=== PATIENT | female | born 1935 | race Caucasian/White ===

== ENCOUNTER 2017-07-09 11:24 | Inpatient (IN) | payer MEDICARE, BC ==
--- NOTE | 2017-06-19 10:21 | HP ---
HISTORY AND PHYSICAL: DATE OF ADMISSION/SURGERY: 07/09/17 SURGEON: Fozia Krause MD * (DICTATED BY GISSEL CAMPOS) PROCEDURE: Left total hip arthroplasty. CHIEF COMPLAINT: Left hip pain. HISTORY OF PRESENT ILLNESS: Ms. Villafana is an 81-year-old female with end-stage osteoarthritis of the left hip. She has failed conservative management and elected to proceed with a left total hip arthroplasty which is scheduled for with Dr. Krause. PAST MEDICAL HISTORY: Macular degeneration. PAST SURGICAL HISTORY: Bilateral total knee arthroplasties, tonsillectomy, adenoidectomy, and trigger finger release of the bilateral hands. CURRENT MEDICATIONS: 1. Aspirin 81 mg daily. 2. Vitamin D. 3. PreserVision AREDS. ALLERGIES: NOVOCAINE. FAMILY HISTORY: Diabetes, cancer, and emphysema. SOCIAL HISTORY: She is an 81-year-old female. She lives with her . She does not smoke, use drugs or alcohol. REVIEW OF SYSTEMS: A complete 14-point review of systems was reviewed with the patient, it was all negative or noncontributory. PHYSICAL EXAMINATION GENERAL: She is well developed, well nourished, in no acute distress. VITAL SIGNS: She stands 5 feet 2 inches tall, weighs 160 pounds. Her blood pressure is 146/84, heart rate is 74. HEENT: Normocephalic, atraumatic. NECK: Supple. No palpable lymph nodes. PULMONARY: Lungs are clear to auscultation bilaterally. CARDIAC: Regular rate and rhythm. Strong S1 and S2. ABDOMEN: Soft, nontender, nondistended. NEUROLOGIC: She is alert and oriented x3. Cranial nerves II through XII are intact. MUSCULOSKELETAL: Left lower extremity: The skin is intact. There are no open wounds or abrasions. She walks with an antalgic type gait, favoring her left hip. She uses a cane to help assist ambulation. She has decreased internal and external rotation of the left hip. She has 2+ dorsal pedis pulses, intact sensation. In her lower extremities, muscular group strengths are intact at 5/ 5. ASSESSMENT AND PLAN: Ms. Villafana is an 81-year-old female with complaints of left hip pain secondary to end-stage osteoarthritis. She has failed conservative management and elected to proceed with a left total hip arthroplasty, which is scheduled for 07/09/[address] Krause discussed the risks and the benefits of the surgery at today's visit and all of her questions were answered. She will follow with Dr. Krause 2 weeks after the surgery. GISSEL CAMPOS [id number]/[facility] #: [id number] KARLA
[~2017-07-09 11:24] MED LIST: Buffered Lidocaine 0.9% SYRIN* 5 ML/SYR SYRINGE INTRADERM ONE; DiMENhydriNATE IV* 50 MG/ML VIAL IV PUSH PRN; Famotidine TAB* 20 MG PO ONE; Morphine INJ* 2 MG/ML 1 ML CARPUJECT IV PRN; Naloxone* 0.4 MG/ML 1 ML VIAL IV PRN; PROCHLORPERAZINE INJ 5 MG/ML 2 ML VIAL IV PRN; fentaNYL* 50 MCG/ML 2 ML VIAL (100 MCG VIAL) IV PRN; oxyCODONE/Acetamin 5/325 MG* TAB PO PRN
--- OUTSIDE RECORDS SUMMARY | 2017-07-09 11:29 | XMS REPORT ---
:1935 External Reference #:[id number] Author Organization [facility] Address [address] [address] Phone [phone] Care Team Providers Name Role Phone Susannah Thorne MD Care Team Information Tuber Operator Unavailable Payers Type Date Identification Numbers Payment Provider Subscriber Medicare Primary Effective: Policy Number: Medicare Carolina Villafana 2002 [id number] PayID: [id number] [address] [place] [address] [place] Effective: Policy Number: BCBS Commercial Carolina Villafana 2012 [id number] PayID: [id number] [address] [address] [place] [address] Problems Date Description Provider Status Onset: 04/16/2011 Overweight Susannah Thorne MD Active Onset: 04/16/2011 Vitamin D deficiency Susannah Thorne MD Active Onset: 04/16/2011 Allergic rhinitis Susannah Thorne MD Active Onset: 04/16/2011 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 Onset: 07/05/2014 Arthroplasty of knee Susannah Thorne MD Active Onset: 06/27/2017 FH: Diabetes mellitus Susannah Thorne MD Active Onset: 07/20/2015 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 Family History Date Family Member(s) Problem(s) Comments Father due to COPD () Father Glaucoma Mother due to Cancer, () - mets to Breast lung; dx breast age about 70 Onset: (age 61 First Daughter Cancer, Breast Years) First Daughter Osteoporosis First Daughter Parkinson's Disease First Brother due to DM () - (age 68 Years) Second Brother due to Leukemia () First Sister due to Cancer, () - (age 78 Pancreatic Years) Second Sister due to Cancer, () - (age 74 Stomach Years) Social History Type Date Description Comments Marital Status Lives with spouse 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 admits not enough in the spring moves to camp on [address] and increases walking then Allergies, Adverse Reactions, Alerts Date Description Reaction Status Severity Comments 07/05/2014 NKDA active Medications Medication Date Status Form Strength Qnty SIG Indications Ordering Provider Carvedilol Active Tablets 3.125mg 60tabs 1 by I25.2 Mati 018 Susannah lira MD twice daily Atorvastatin Active Tablets 10mg 30tabs 1 by I25.2 Mati Calcium 018 Susannah lira MD every day Vitamin D3 Active Tablets 1000Unit 180tabs 2 by E55.9 Mati 015 Susannah lira MD daily with dinner with meat fat oil Aspirin Adult Active Tablets DR 81mg 90tabs 1 po Z00.01 Mati Low Strength 012 daily , MD Susannah with food I25.2 Preservision Areds Active Capsules 1 by mouth H35.3130 Unknown twice a day Tylenol Extra Active Tablets 500mg as needed Unknown Strength Antioxidant - Hx Capsules bid Unknown Formula 01/31/2017 Immunizations CPT Code Status Date Vaccine Reaction Lot # [id number] Given 01/09/2017 Flulaval Immunization [facility] 48465 Given 01/25/2016 Fluzone Highdose Age 65 And Over [facility] Preservative & Antibiotic Free Q2037 Given 03/23/2015 Fluvirin Immunization 81545 Given 07/05/2014 Prevnar 13 Pneumococal Conjugate Vaccine [id number] 86288 Given 02/21/2014 Fluzone Highdose Age 65 And Over Preservative & Antibiotic Free 58677 Given 01/25/2014 Influenza Virus Vaccine,Quadrivalent,Split,Preserv Free 3 Yrs+ 41473 Given 03/28/2013 Afluria Or Fluvirin Flu Vac Intramuscular 54037 Given 03/03/2009 Afluria Or Fluvirin Flu Vac Intramuscular 87519 Given 03/25/2007 Immunization Td 7 Yrs Or Older 38999 Given 03/25/2005 Pneumococcal 23 Immunization Adult Or Immunosuppressed Patient 91951 Refused 07/20/2016 Zoster (Zostavax) [id number] Refused 07/05/2014 Zoster (Zostavax) Vital Signs Date Vital Result Comment 06/27/2017 Weight 166.00 lb Heart Rate 70 /min BP Systolic 118 mmHg BP Diastolic 78 mmHg Respiratory Rate 18 /min Height 61 inches 5'1" BMI (Body Mass Index) 31.4 kg/m2 05/23/2017 Weight 170.00 lb Heart Rate 70 /min BP Systolic 130 mmHg BP Diastolic 72 mmHg Respiratory Rate 18 /min Height 60.75 inches 5'0.75" BMI (Body Mass Index) 32.4 kg/m2 02/01/2017 Weight 166.00 lb Heart Rate 78 /min BP Systolic 118 mmHg BP Diastolic 68 mmHg Respiratory Rate 14 /min Height 60.75 inches 5'0.75" BMI (Body Mass Index) 31.6 kg/m2 07/20/2016 Weight 166.00 lb Heart Rate 74 /min BP Systolic 120 mmHg BP Diastolic 80 mmHg Respiratory Rate 18 /min Height 60.75 inches 5'0.75" BMI (Body Mass Index) 31.6 kg/m2 07/20/2015 Weight 162.00 lb Heart Rate 80 /min BP Systolic 146 mmHg LEFT Reg BP Diastolic 94 mmHg LEFT Reg BP Systolic Recheck 127 mmHg home BP Diastolic Recheck 78 mmHg home Respiratory Rate 18 /min Height 60.75 inches 5'0.75" BMI (Body Mass Index) 30.9 kg/m2 07/05/2014 Weight 164.00 lb Heart Rate 74 /min BP Systolic 140 mmHg BP Diastolic 82 mmHg Respiratory Rate 18 /min Height 61.5 inches 5'1.50" BMI (Body Mass Index) 30.5 kg/m2 08/13/2013 Weight 166.00 lb Heart Rate 74 /min Respiratory Rate 18 /min Height 61.5 inches 5'1.50" 07/02/2013 BP Systolic 158 mmHg home 130/80 BP Diastolic 80 mmHg home 130/80 07/02/2013 Weight 164.00 lb Heart Rate 72 /min BP Systolic 150 mmHg BP Diastolic 90 mmHg Respiratory Rate 18 /min Height 61.5 inches 5'1.50" 06/20/2012 Weight 166.00 lb Heart Rate 74 /min BP Systolic 132 mmHg BP Diastolic 80 mmHg Respiratory Rate 18 /min Height 62 inches 5'2" 04/16/2011 Body Temperature 98.5 F Weight 149.00 lb Heart Rate 68 /min BP Systolic 128 mmHg BP Diastolic 82 mmHg Respiratory Rate 17 /min Height 62 inches 5'2" 04/14/2010 BP Systolic 152 mmHg RIGHT BP Diastolic 88 mmHg RIGHT 04/14/2010 Body Temperature 98.7 F Weight 165.00 lb Heart Rate 80 /min BP Systolic 148 mmHg LEFT BP Diastolic 90 mmHg LEFT Respiratory Rate 16 /min 04/11/2009 BP Systolic 151 mmHg pts cuff BP Diastolic 73 mmHg pts cuff 04/11/2009 Weight 168.00 lb Heart Rate 74 /min BP Systolic 128 mmHg BP Diastolic 76 mmHg Respiratory Rate 16 /min 12/16/2008 BP Systolic 132 mmHg BP Diastolic 80 mmHg 12/16/2008 Weight 168.00 lb Heart Rate 80 /min BP Systolic 140 mmHg BP Diastolic 80 mmHg Respiratory Rate 14 /min 10/08/2008 BP Systolic 138 mmHg BP Diastolic 90 mmHg 10/08/2008 Weight 171.00 lb Heart Rate 82 /min BP Systolic 148 mmHg BP Diastolic 88 mmHg Respiratory Rate 16 /min 04/09/2008 BP Systolic 146 mmHg BP Diastolic 82 mmHg 04/09/2008 Weight 173.50 lb Heart Rate 80 /min BP Systolic 150 mmHg BP Diastolic 80 mmHg Respiratory Rate 16 /min Height 62 inches 5'2" Results Test Date Test Result H/L Range Note Laboratory test finding 06/27/2017 Vit D 25Oh <pending> Comprehensive Metabolic (CMP) 07/20/2016 Sodium 140 mmol/L 135-146 1, 2 Potassium 4.9 mmol/L 3.5-5.2 1 Chloride# 101 mmol/L 97-110 1, 3 Carbon Dioxide 31 mmol/L 24-34 1 Glucose 139 mg/dL High 70-105 1 BUN 17 mg/dL 6-26 1 Creatinine 0.8 mg/dL 0.5-1.4 1 Calcium 10.2 mg/dL 8.5-10.2 1 Total Protein 7.2 g/dL 6.0-8.0 1 Albumin 4.4 g/dL 3.6-4.9 1 Globulin 2.8 g/dL 2.0-3.5 1 A/G Ratio 1.6 Ratio 1.0-2.2 1 Total Bilirubin 0.4 mg/dL 0.1-1.3 1 Alkaline Phosphatase 36 U/L 24-140 1 Alt 12 U/L 3-42 1 Ast 13 U/L 8-42 1 Melani Egfr >60 >60 1, 4 Non Melani Egfr >60 >60 1, 5 Anion Gap 13 mmol/L 7-16 1, 6 Laboratory test finding 07/20/2016 Vit D,25 Hydroxy 56 ng/mL 31-100 1 Lipid 07/20/2016 Cholesterol 177 mg/dL 50-199 1 Triglycerides 202 mg/dL High 30-200 1 HDL 50 mg/dL 35-85 1, 7 Chol/ HDL Ratio 3.6 ratio Low 3.7-5.6 1 VLDL 40 mg/dL High 2-29 1 LDL (Calc) 87 mg/dL 20-99 1, 8 Laboratory test finding 07/20/2015 Vit D,25 Hydroxy 37 ng/mL 31-100 9 Comprehensive Metabolic (CMP) 07/20/2015 Sodium 138 mmol/L 134-142 9 Potassium 4.4 mmol/L 3.5-5.2 9 Chloride 101 mmol/L 97-109 9 Carbon Dioxide 32 mmol/L 24-34 9 Glucose 87 mg/dL 70-105 9 BUN 18 mg/dL 6-26 9 Creatinine 0.8 mg/dL 0.5-1.4 9 Calcium 9.8 mg/dL 8.5-10.2 9 Total Protein 7.5 g/dL 6.0-8.0 9 Albumin 4.3 g/dL 3.6-4.9 9 Globulin 3.2 g/dL 2.0-3.5 9 A/G Ratio 1.3 Ratio 1.0-2.2 9 Total Bilirubin 0.5 mg/dL 0.1-1.3 9 Alkaline Phosphatase 32 U/L 24-140 9 Alt 13 U/L 3-42 9 Ast 16 U/L 8-42 9 Anion Gap 9 mmol/L 6-14 9 Melani Egfr >60 >60 9, 10 Non Melani Egfr >60 >60 9, 11 CBC With Auto Diff 07/14/2014 WBC 7.8 K/uL 4.1-11.0 12 RBC 4.46 M/uL 4.00-5.40 12 Hemoglobin 13.7 gm/dL 12.0-16.0 12 Hematocrit 41.4 % 36.0-47.0 12 MCV 92.8 fL 80.0-97.0 12 MCH 30.6 pg 27.0-32.0 12 MCHC 33.0 g/dL 32.0-36.0 12 RDW 14.0 % 11.5-14.5 12 PLT Count 245 K/ul 140-400 12 Neutrophil 61.7 % 35.0-75.0 12 Lymphocyte 27.0 % 16.0-52.0 12 Monocyte 8.6 % 2.0-10.0 12 Eosinophil 1.9 % 0.0-5.0 12 Basophil 0.8 % 0.0-4.0 12 Abs Neutrophils 4.8 K/uL 2.1-8.0 12 Abs Lymphocytes 2.1 K/uL 0.8-5.5 12 Abmon 0.7 K/uL 0.1-1.0 12 Abs Eosinophils 0.1 K/uL 0.0-0.5 12 Abs Basophils 0.1 K/uL 0.0-0.3 12 Comprehensive Metabolic (CMP) 07/14/2014 Sodium 140 mmol/L 134-142 12 Potassium 5.0 mmol/L 3.5-5.2 12 Chloride 102 mmol/L 97-109 12 Carbon Dioxide 31 mmol/L 24-34 12 Glucose 107 mg/dL High 70-105 12 BUN 15 mg/dL 6-26 12 Creatinine 0.8 mg/dL 0.5-1.4 12 Calcium 9.4 mg/dL 8.5-10.2 12 Total Protein 7.2 g/dL 6.0-8.0 12 Albumin 4.1 g/dL 3.6-4.9 12 Globulin 3.1 g/dL 2.0-3.5 12 A/G Ratio 1.3 Ratio 1.0-2.2 12 Total Bilirubin 0.4 mg/dL 0.1-1.3 12 Alkaline Phosphatase 31 U/L 24-140 12 Alt 12 U/L 3-42 12 Ast 14 U/L 8-42 12 Anion Gap 12 mmol/L 6-14 12 Melani Egfr >60 >60 12, 13 Non Melani Egfr >60 >60 12, 14 Laboratory test finding 07/14/2014 Vit D,25 Hydroxy 47 ng/mL 31-100 12 Microalb/Creat Panel 07/05/2014 Albumin, Urine 0.76 mg/dL Creatinine,Urine 46.6 mg/dL Alb/Creatinine Ratio 16.3 ug/mg (0.0-29.9) 15 Rout Urine W/ Micro -RL 07/05/2014 Color YELLOW Appearance CLEAR Spec Grav Urine 1.010 (1.003-1.030) PH Urine 6.0 (5.0-7.5) Leuk Esterase 2+ (Neg) Nitrite Urine NEGATIVE (Neg) Protein Urine NEGATIVE (Neg) Glucose Urine NEGATIVE (Neg) Ketone Urine NEGATIVE (Neg) Urobilinogen 0.2 mg/dL (0-1.0) Bilirubin Urine NEGATIVE (Neg) Blood/HGB Urine NEGATIVE (Neg) Epithelial Cells NEGATIVE [HPF] (Neg) Hyaline Casts 0.7 [LPF] (0-5) Bacteria 1+ [HPF] (Neg) Urine WBC 36.2 [HPF] High (0-8) Urine RBC 0.9 [HPF] (0-3) 16 Laboratory test finding 07/02/2013 Culture Urine See Note 17 Urine Amorph Sediment Small Negative Urine Bacteria Few None Seen Urine Epithelial Cells Few None Seen /lpf Urine Mucus Small None Seen Urine RBC 0-2 rbc/hpf 0-7 Urine WBC 2-5 wbc/hpf 0-7 Laboratory test finding 07/02/2013 % Baso. 1.7 % 0.0-2.0 % Eos. 1.8 % 0.0-4.0 % Lymph 33 % 20-44 % Moody 8.2 % 2.0-10.0 % Ursula 56 % 50-70 A/G Ratio 1.2 ratio Low 1.6-2.2 Absolute Baso. 0.2 K/ul 0.0-0.3 Absolute Eos. 0.2 K/ul 0.0-0.5 Absolute Lymph. 3.0 K/ul 0.8-4.8 Absolute Moody. 0.8 K/ul 0.1-1.0 Absolute Ursula. 5.12 K/ul 2.05-7.63 Albumin 4.3 g/dL 3.5-5.0 Alk. Phos. 34.0 U/L 30.0-126.0 Alt 18.0 U/L 9.0-52.0 Anion Gap 11.0 mmol/L 10.0-20.0 Ast 24.0 U/L 14.0-36.0 BUN 20.0 mg/dL High 7.0-18.0 BUN/Creat Ratio 25.0 ratio High 12.0-20.0 Calcium 9.3 mg/dL 8.7-10.5 Chloride 103.0 mmol/L 98.0-107.0 Co2 26.0 mmol/L 22.0-30.0 Creatinine-Serum 0.8 mg/dL 0.7-1.2 Globulin 3.7 g/dL 2.7-4.3 Glucose 100.0 mg/dL 75.0-110.0 HCT 43.7 % 37.0-51.0 HGB 14.7 Gm/dl 12.0-16.0 MCH 31.5 pg 26.0-32.0 MCHC 33.7 g/dL 31.0-36.0 MCV 93.5 Fl 80.0-97.0 MPV 6.6 fL 6.0-10.0 PLT 340 K/ul 140-440 Potasium 4.7 mmol/L 3.6-5.0 RBC 4.7 M/ul 4.2-6.3 RDW 13.0 % 11.5-14.5 Sodium 140.0 mmil/L 137.0-145.0 TSH 3.13 uIU/ml 0.50-6.00 Total Bilirubin 0.4 mg/dL 0.2-1.3 Total Protein 8.0 g/dL 6.3-8.2 WBC 9.2 K/ul 4.1-10.9 eGFR 71.9 mi/minper1.73 18 Lipid Panel 07/02/2013 Chol/HDL Ratio 3.9 ratio Cholesterol 175.0 mg/dL 50.0-199.0 HDL 45.0 mg/dL 29.0-86.0 LDL, Calculated 108.6 mg/dL 20.0-129.0 Triglycerides 107.0 mg/dL 30.0-249.0 vLDL 21.4 ng/dL Urine Microalbumin/Creat 07/02/2013 Microalb/Creat Ratio 6.5 ug/ngcrt 0.0 -30.0 Urine Creatinine 155.6 mg/dL Urine Microalbumin 10.1 mg/L <18.5 1 g fo fam hist diabetesand ho chol lipid done for obesity dm ;labst paulie letter ; last food at 7am, doin 2 Updated reference range on new analyzer 3 Updated reference range on new analyzer 4 Concerning GFR Guidelines for Americans: Normal function or mild renal disease, if clinically at risk: >/=60 mL/min Moderately decreased: 30-59 Severely decreased: 15-29 Renal failure: <15 5 Concerning GFR Guidelines: Normal function or mild renal disease, if clinically at risk: >/=60 mL/min Moderately decreased: 30-59 Severely decreased: 15-29 Renal failure: <15 Glomerular Filtration Rate (GFR) is estimated based on the MDRD equation, which assumes a steady state for creatinine as recommended by the National Kidney Disease Education Program in conjunction with the National Institutes of Health and the National Kidney Foundation. Clinical conditions in which it may be necessary to measure GFR by using clearance methods include extremes of age and body size, severe malnutrition or obesity, diseases of skeletal muscle, paraplegia or quadriplegia, vegetarian diet, rapidly changing kidney function, and calculation of the dose of potentially toxic drugs that are excreted by the kidneys. 6 Updated reference range on new analyzer 7 Per NCEP ATP III Guidelines: Results lower than 40 mg/dL are suggestive of increased risk for coronary artery disease. Results > or=to 60 mg/dL are considered a negative risk factor. 8 Per NCEP ATP III Guidelines: Normal Population <130 Patients with medical conditions: CHD/DM Optimal: <100 Borderline high: 130-159 High: 160-189 Very high: >189 9 today letter 10 Concerning GFR Guidelines for Americans: Normal function or mild renal disease, if clinically at risk: >/=60 mL/min Moderately decreased: 30-59 Severely decreased: 15-29 Renal failure: <15 11 Concerning GFR Guidelines: Normal function or mild renal disease, if clinically at risk: >/=60 mL/min Moderately decreased: 30-59 Severely decreased: 15-29 Renal failure: <15 Glomerular Filtration Rate (GFR) is estimated based on the MDRD equation, which assumes a steady state for creatinine as recommended by the National Kidney Disease Education Program in conjunction with the National Institutes of Health and the National Kidney Foundation. Clinical conditions in which it may be necessary to measure GFR by using clearance methods include extremes of age and body size, severe malnutrition or obesity, diseases of skeletal muscle, paraplegia or quadriplegia, vegetarian diet, rapidly changing kidney function, and calculation of the dose of potentially toxic drugs that are excreted by the kidneys. 12 today letter; Fastin hours today letter; Fastin hours today letter; Fastin hours 13 Concerning GFR Guidelines for Americans: Normal function or mild renal disease, if clinically at risk: >/=60 mL/min Moderately decreased: 30-59 Severely decreased: 15-29 Renal failure: <15 14 Concerning GFR Guidelines: Normal function or mild renal disease, if clinically at risk: >/=60 mL/min Moderately decreased: 30-59 Severely decreased: 15-29 Renal failure: <15 Glomerular Filtration Rate (GFR) is estimated based on the MDRD equation, which assumes a steady state for creatinine as recommended by the National Kidney Disease Education Program in conjunction with the National Institutes of Health and the National Kidney Foundation. Clinical conditions in which it may be necessary to measure GFR by using clearance methods include extremes of age and body size, severe malnutrition or obesity, diseases of skeletal muscle, paraplegia or quadriplegia, vegetarian diet, rapidly changing kidney function, and calculation of the dose of potentially toxic drugs that are excreted by the kidneys. 15 Unless otherwise specified, testing performed by [facility] [place] [address] 16 Unless otherwise specified, testing performed by [facility] [place] [place] [address] 17 NO GROWTH: FINAL REPORT 18 For -Burmese patients multiply result by 1.180 Procedures Date CPT Code Description Status Comment 06/27/2017 86272 Electrocardiogram Complete Completed 07/20/2015 91157 X-Ray Finger(S) Two Views Completed 07/20/2015 08440 X-Ray Finger(S) Two Views Completed 07/14/2014 Mammogram Completed 07/02/2013 28023 Electrocardiogram Complete Completed 04/16/2011 60323 Electrocardiogram Complete Completed 10/08/2008 72610 Electrocardiogram Complete Completed 03/25/2004 Colonoscopy Completed (2004) Per pt done previously at [facility] through dr cat, about 2005, Polly Wasserman [employer] is organizing this for her ; 07/05/2014 not recommended due to age Encounters Type Date Location Provider CPT E/M Dx Office Visit 05/23/2017 2:30p [facility] [place] [address] M79.605 Office Visit 02/01/2017 2:00p [facility] [place] [address] S00.83xA S00.12xA S00.11xA S09.90xA S80.02xA Office Visit 07/20/2016 11:00a [facility] Susannah Thorne MD G0439 E55.9 Z00.01 M15.0 Z96.653 Z12.31 J30.9 Z80.3 Z12.11 H35.3130 Z83.3 Z68.31 Office Visit 07/20/2015 10:30a [facility] Susannah Thorne MD G0439 M24.542 M65.311 R03.0 Z00.01 M15.0 Z96.653 Z12.31 J30.9 E55.9 Z80.3 Z12.11 Z68.30 H35.31 Office Visit 07/05/2014 11:00a [facility] Susannah Thorne MD G0439 V70.0 796.2 268.9 477.9 715.00 V43.65 V76.12 V76.2 V76.51 V03.82 V04.89 V82.81 278.00 Plan of Care Future Appointment(s):07/04/2017 10:30 am - Susannah Thorne MD at [facility]2017 9:30 am - Susannah Thorne MD at [facility]06/27/2017 - Susannah Thorne MDM16.12 Unilateral primary osteoarthritis, LEFT hipComments:for left hip replacement with Dr Mccallum up:labs today or schedule; echo mine for preop, surg is 08/08 ; follow up in 7-9 days for new bp nad statin, use oc15 or blocked triage (not double book)M25.552 Pain in LEFT hipI25.2 Old myocardial infarctionNew Medication:Carvedilol 3.125 mgAtorvastatin Calcium 10 mgNew Orders :EchoComments:Surprisingly, the ekg shows new findings of septal infarct as compared with prior ekg from 2014. Ptdenies remembering any episodes of acute chest pain, Current function she reports is very good, exercise tolerance is good, no chest pain with exertion. Discussed options of direct referral for stress testing, but clinically may not be indicated. Recommend echo, if that shows wall motion abnormalities, then we will need to do further cardiac evaluation before surgery on 08/08Z01.818 Encounter for other preprocedural examinationComments:By history and exam pt appears cardiovasc and cardiopulm stable; however, she has abnormal ekg fo rwhich we need to do echo first. Also labs are pending and final clearance will be made pending those results. CC faxed to requesting surgeon of this note and labs and ekg and echo. Discussed use of betablocker and statin therapy to start now to help reduce the risks for cardiovascular events perioperatively. We will start these now, they can be stopped if eval suggests they are not needed, cautioned risks for bp med to cause low bp. Also statins can cause muscle pain and break down.Z00.01 Encounter for general adult medical exam w abnormal findingsComments:medicare physicalDepression screen:upon review of signs and symptoms with exam assessment pt does not appear depressed.No Fall concerns Functional capacity and daily living skills: upon review of signsand symptoms through direct questioning, pt appears stable and adequately safe to continue in her current living situation.Screening for breast cancer: as discussed Screening for unit coordinator cancers (cervical,vaginal, vulvar): decined Screening for colon cancer: declined Pneumovax up to date.prevnar 13 --07/05/14Tetanus booster discussed. consider tdap for whooping cough protection, can get at drug store. Consider Hep A series for travelConsider shingles vaccine, Shingrix, at drug store Health care proxy recommended to be completed, papers given for pt to complete previously, designates spouse, then daughter Barbara Meehan. Healthy lifestyle recommendations. Encouraged healthy diet with meats simply prepared, fresh fruits and veg when able also simply prepared, whole grains, 3 dairies per day non fat. Encouraged daily exercise 30 - 60 min daily/150min per week. Encouraged at least 2.5 qrts water per day with more for sweaty exercise. [employer] 7-8 hours of sleep at night. Work on your "happy factors", meaning hobbies and things you do day to day. Engaging in a health lifestyle may decrease your risk for illnesses and may improve your quality of lifeZ96.653 Presence of artificial knee joint, bilateralComments:History of knee replacement.no uretjundG62.3 Family history of diabetes mellitusComments:fam history diabetes--Please monitor for symptoms of diabetes, such as polydipsia( thirst/drinking alot), polyuria(urinating alot, emilee at night), fatigue, or concerns. Encourage healthy diet, daily exercise, weight loss to get to kpevcjK01.9 Vitamin D deficiency, unspecifiedComments:Pt with vit D deficiency on replacement, check levels with next labs. Continue replacement and recheck periodically. Be certain to take your vit d with your main meal that has meat/ fat/oil as this is fat soluble. New recommended goals are levels 40 - 85J30.9 Allergic rhinitis, unspecifiedComments:allergies. pt takes otc meds as needed.Z80.3 Family history of malignant neoplasm of breastComments:family history breast cancerdeclines mammo, will do annual clinical breast examseek care for any isrwrlsyT15.31 Encntr screen mammogram for malignant neoplasm of breastComments:Annual mammogram and clinical breast exam d with monthly breast self exams discussed. Pt should call/come in if she has any changes in breast self exam or concerns. For women age 75 and older who want to treat breast cancer and are expected to live another 10 years to consider continueing breast cancer screening if you would treat cancer if found. At risk pts should do annually or as directed by specialist recommenations. Currently I am recommending pts do what they feel they should, and that mostin this risk category do a clinical breast exam and decline the mammo once over 80. If you want to treat breast cancer,, then do annual screening. She asks for annual clinical breast exam.H35.6094 Nexdtve age-related mclr degn, bilateral, stage unspecifiedComments:macular degenerationavoid UV light exposure best you cancontinue optho consultcare with Dr JessicaR03.0 Elevated blood-pressure reading, w/o diagnosis of htnComments:Prehypertensive. Blood pressure at or above 120/80 is considered prehypertension. We would treat ifover 140/90 Given age, will monitor, recheck as scheduled. In the meantime, please work on healthy diet, regular exercise, avoiding excessive salt.Z68.31 Body mass index ( BMI) 31.0-31.9, adultComments:work on reduced calorie diet and regular exercise to try to lose weight
--- OUTSIDE RECORDS SUMMARY | 2017-07-09 11:30 | XMS REPORT ---
:1935 External Reference #:[id number] Author Organization [facility] Address [address] [address] Phone [phone] Care Team Providers Name Role Phone Susannah Thorne MD Primary Care Physician Unavailable Payers Type Date Identification Numbers Payment Provider Subscriber Medicare Primary Policy Number: [id number] Medicare Carolina Villafana PayID: [id number] [address] [place] [address] Medigap Part B Policy Number: [id number] BS Facets Carolina Villafana PayID: [id number] [address] [address] [place] [address] Problems Date Description Provider Status Onset: 06/14/2017 Localized, primary osteoarthritis of the Foziakobi Krause M.D. Active pelvic region and thigh Family History Date Family Member(s) Problem(s) Comments General Diabetes General Cancer General Emphysema Father Emphysema Mother Breast Cancer metasatic breast to lung Social History Type Date Description Comments Marital Status Lives With Occupation Retired ETOH Use Denies alcohol use Smoking Patient has never smoked Recreational Drug Use Denies Drug Use Daily Caffeine Diet coke occassionally Daily Caffeine consumes chocolate occasionally Daily Caffeine Hot chocolate occassionally Exercise Type/Frequency Exercises sporadically Allergies, Adverse Reactions, Alerts Date Description Reaction Status Severity Comments 01/31/2017 Novacaine active Swelling in face 08/03/2015 NKDA inactive Medications Medication Date Status Form Strength Qnty SIG Indications Ordering Provider Preservision Active Tablets 1 capsule Unknown Areds 000 twice a day w/food Vitamin D Active Tablets 2000Unit 1 by Unknown 000 mouth every day Aspirin 0 Active Tablets 81mg 1 by Unknown 000 mouth every day Advil 0 Active Tablets 200mg 2 po as Unknown 000 needed Ultracet Hx Tablets 37.5-325mg 30tabs 1-2 tabs Maria L 016 - by mouth Theodora Natarajan every 4-6 016 hours as needed pain Medications Administered in Office Medication Date Status Form Strength Qnty SIG Indications Ordering Provider Depomedrol Administered Injection Maria L 40MG 016 Theodora Natarajan Vital Signs Date Vital Result Comment 06/14/2017 Height 62 inches 5'2" Weight 160.00 lb Heart Rate 80 /min BP Systolic 146 mmHg BP Diastolic 84 mmHg BMI (Body Mass Index) 29.3 kg/m2 06/04/2017 Height 62 inches 5'2" Weight 160.00 lb Heart Rate 60 /min BP Systolic Sitting 136 mmHg BP Diastolic Sitting 78 mmHg Respiratory Rate 18 /min Pain Level 4 BMI (Body Mass Index) 29.3 kg/m2 02/18/2017 Height 62 inches 5'2" Weight 160.00 lb Heart Rate 96 /min BP Systolic Sitting 124 mmHg BP Diastolic Sitting 72 mmHg Respiratory Rate 16 /min Pain Level 0 BMI (Body Mass Index) 29.3 kg/m2 01/31/2017 Weight 160.00 lb Heart Rate 88 /min BP Systolic Sitting 124 mmHg BP Diastolic Sitting 68 mmHg Respiratory Rate 12 /min no respiratory difficulties Pain Level 0 09/19/2015 Height 62 inches 5'2" Weight 163.00 lb Pain Level 0 burning feeling at times BMI (Body Mass Index) 29.8 kg/m2 09/01/2015 Height 62 inches 5'2" Weight 163.00 lb Body Temperature 98.4 F Pain Level 0 BMI (Body Mass Index) 29.8 kg/m2 08/03/2015 Height 62 inches 5'2" Weight 163.00 lb Heart Rate 76 /min BP Systolic Sitting 122 mmHg BP Diastolic Sitting 80 mmHg BMI (Body Mass Index) 29.8 kg/m2 Results Description No Information Procedures Date CPT Code Description Status 01/31/2017 03231 Inject/Drain Joint/Bursa Major Completed 08/23/2015 75717 Trigger Finger Release Incision / Tendon Sheath Completed Incision 08/23/2015 45440 Trigger Finger Release Incision / Tendon Sheath Completed Incision 08/03/2015 50647 Inject Tendon Sheath Or Ligament Aponeurosis Eg Plantar Completed Fascia Encounters Type Date Location Provider CPT E/M Dx Office Visit 06/04/2017 [place] [address] M16.12 10:15a Of [facility] Office Visit 02/18/2017 [place] [address] S80.02xA 10:00a [facility] [address] Office Visit 01/31/2017 9:30a [place] [address] S80.02xA [facility] [address] [facility] M25.462 W19.xxxA Office Visit 08/03/2015 2:00p [facility] Maria L Natarajan, [address] M65.332 [facility] Theodora M65.311 Plan of Care Future Appointment(s):07/19/2017 10:45 am - Fzoia Krause M.D. at [facility]06/14/2017 - Fozia Krause M.D.M16.12 Unilateral primary osteoarthritis, left hipNew Xrays:Hip Left 2 Views And Pelvis [address] - [address]Cluoay up:Follow up:M25.552 Pain in left hip
[2017-07-09] MEDS ORDERED: Midazolam* 1 MG/ML 5 ML VIAL (5 MG) ONE (12:43)
[2017-07-09] MEDS ORDERED: fentaNYL* 50 MCG/ML 2 ML VIAL (100 MCG VIAL) ONE (12:43)
[2017-07-09] MEDS ORDERED: ceFAZolin 2 GM PREMIX (*) 2 GM/50 ML BAG IVPB ONE (12:53)
[2017-07-09] MEDS ORDERED: Famotidine TAB* 20 MG ONE (12:53)
[2017-07-09] MEDS ORDERED: Buffered Lidocaine 0.9% SYRIN* 5 ML/SYR SYRINGE ONE (13:04)
[2017-07-09] MEDS ORDERED: Bupivacaine 0.5% SDV PF* 10-30ML VIAL ONE (13:51)
[2017-07-09] MEDS ORDERED: Acetaminophen TAB* 325 MG PO PRN (15:52)
[2017-07-09] MEDS ORDERED: Ondansetron TAB* 4 MG PO PRN (15:52)
[2017-07-09] MEDS ORDERED: Morphine VIAL* 4 MG/ML VIAL (1 ml vial) IV PRN (15:52)
[2017-07-09] MEDS ORDERED: Polyethylene Glycol 3350* 17 GM PACKET PO PRN (15:52)
[2017-07-09] MEDS ORDERED: diPHENhydraMINE IV* 50 MG/ML 1 ml VIAL (BENADRYL) IV PRN (15:52)
[2017-07-09] MEDS ORDERED: oxyCODONE/Acetamin 5/325 MG* TAB PO PRN (15:52)
[2017-07-09] MEDS ORDERED: Magnesium Hydroxide LIQ* 30 ML UDC PO PRN (15:52)
[2017-07-09] MEDS ORDERED: Bisacodyl SUPP* 10 MG SUPP PR PRN (15:52)
[2017-07-09] MEDS ORDERED: Ondansetron INJ* 2 MG/ML VIAL IV PRN (15:52)
[2017-07-09] MEDS ORDERED: Cyclobenzaprine TAB* 10 MG PO PRN (15:52)
[2017-07-09] MEDS ORDERED: ceFAZolin 1 GM in Dextrose (*) 1 GM/50 ML BAG IVPB SCH (16:00)
--- NOTE | 2017-07-09 16:26 | RAD ---
INDICATION: Total left hip replacement surgery. COMPARISON: Correlation is made with a prior study from June 14, 2017. TECHNIQUE: A portable AP film of the left hip was obtained in the operating room. FINDINGS: The patient is undergoing a total left hip replacement surgery. There is a acetabular prosthesis is in place. There is also a femoral prostheses template in place. IMPRESSION: INTRAOPERATIVE CONTROL FILMS.
[2017-07-09] MEDS ORDERED: Warfarin TAB(*) 6 MG PO ONE ×2 (17:00→20:20)
[2017-07-09] MEDS ORDERED: Lidocaine 2% PF * 5 ML VIAL ONE (17:01)
[2017-07-09] MEDS ORDERED: Bupivacaine 0.25% SDV* 30 ML ONE (17:01)
[2017-07-09] MEDS ORDERED: EPHEDrine (Pressors)* 50 MG/ML VIAL ONE (17:01)
[2017-07-09] MEDS ORDERED: Phenylephrine INJ* 10 MG/ML 1 ML VIAL (10 MG) ONE (17:01)
[2017-07-09] MEDS ORDERED: Ondansetron INJ* 2 MG/ML VIAL ONE (17:01)
[2017-07-09] MEDS ORDERED: Dexamethasone IV* 4 MG/ML 1 ML (4 MG) ONE (17:01)
[2017-07-09] MEDS ORDERED: Propofol* 500 MG/50 ML BTL ONE (17:02)
--- NOTE | 2017-07-09 18:26 | RAD ---
INDICATION: Status post total left hip replacement surgery. COMPARISON: Comparison is made with a prior study of the same date. TECHNIQUE: An AP view of the pelvis was obtained. FINDINGS: The patient is status post total left hip replacement surgery. The bones and prostheses are in normal alignment. There is a small amount of air in the lateral soft tissues consistent with the patient's recent surgery. IMPRESSION: STATUS POST TOTAL LEFT HIP REPLACEMENT SURGERY.
[2017-07-09] MEDS: Atorvastatin* 10 MG TAB PO SCH (20:21)
[2017-07-09] MEDS: Docusate CAP* 100 MG PO SCH (20:21)
[2017-07-09] MEDS: Carvedilol TAB* 3.125 MG PO SCH (20:22)
[2017-07-09] MEDS: Magnesium Hydroxide LIQ* 30 ML UDC PO SCH (20:23)
[2017-07-09] MEDS ORDERED: PRESERVISION PO SCH (21:00)
[2017-07-09] MEDS: ceFAZolin 1 GM in Dextrose (*) 1 GM/50 ML BAG IVPB SCH (23:12)
[2017-07-09] MEDS: oxyCODONE TAB* 5 MG TAB PO PRN (23:12)
--- NOTE | 2017-07-10 02:18 | OP ---
DATE OF OPERATION: 07/09/17 - ROOM #349 DATE OF : 33 ATTENDING SURGEON: Fozia Krause MD. POLICE PATROL LIEUTENANT: GISSEL Cowan. Mr. North did help throughout the procedure with preparation of the leg, wound retraction, manipulation of the hip, and wound closure. ANESTHESIOLOGIST: Dr. Brown. ANESTHESIA: Spinal. PRE-OP DIAGNOSIS: Severe endstage degenerative osteoarthritis of the left hip joint. POST-OP DIAGNOSIS: Severe endstage degenerative osteoarthritis of the left hip joint. OPERATIVE PROCEDURE: Left total hip arthroplasty. COMPLICATIONS: None. ESTIMATED BLOOD LOSS: 450 cc. SPECIMEN: Femoral head and acetabular reaming sent to Pathology. HARDWARE USED: This is uncemented Williams total hip arthroplasty hardware. For the cup, a Tritanium cluster hole shell, 50D with 2 lengths 20 Torx cancellous bone screws. For the liner, a Trident X3 10-degree polyethylene liner 32D. For the stem, an Accolade TMZF size 3 with a 127-degree neck. For the head, a 32 -4 ceramic V40 femoral head. BRIEF HISTORY/INDICATIONS: Ms. Villafana is an 81-year-old female with 1 year of severe left hip pain. She failed conservative treatment with antiinflammatories , physical therapy, use of a walker and pain medication. Due to continued pain and decreased quality of life, the patient elected to undergo left total hip arthroplasty. Radiographs showed bone on bone arthritis. Informed consent was obtained from the patient. She understood the risks of the surgery included, but were not limited to bleeding, infection, damage to nearby structures, continued pain, need for further surgery, intraoperative fracture, nerve palsy, hardware failure or loosening, dislocation, leg length discrepancy, stroke, heart attack, blood clot, and . She wished to proceed. INTRAOPERATIVE FINDINGS: Intraoperatively, the patient was noted to have severe endstage arthritis with complete loss of cartilage in the femoral head and acetabulum. DESCRIPTION OF PROCEDURE: Ms. Villafana was identified in the preanesthesia unit. The left lower extremity was marked as the correct operative side. Informed consent was signed and placed in the chart. The patient was taken to the operating room and placed under spinal anesthesia. A Prajapati catheter was placed. The patient was placed in the right lateral decubitus position on the pegboard. All bony prominences were well padded. Left lower extremity was prepped and draped in the usual sterile fashion. Preop time-out was made to correctly identify the patient's side and site. Appropriate perioperative antibiotics were given within 1 hour of incision. A standard posterior hip incision was made with a 10-blade. Electrocautery was used to dissect down to the lateral fascia layer. Lateral fascia layer was incised in line with the skin incision using a new 10 blade. The Charnley retractor was placed. The piriformis and conjoint tendons were identified. These were elevated off the posterolateral femur using electrocautery and tagged with #5 Ethibond. Next, electrocautery was used to make a standard posterolateral capsular flap and this was also tagged with #5 Ethibond. The hip was carefully dislocated. Lesser troch to center of the femoral head measured 52 mm. Oscillating saw was used to make the femoral neck cut. Femoral head was carefully removed. The femur was retracted anteriorly. After appropriate placement of retractors, the acetabulum was easily visualized. A long-handled knife was used to sharply remove any remaining labrum from the acetabular rim. The acetabulum was sequentially reamed up to a size 49. A bleeding subchondral bone bed was obtained. A 49 trial had excellent fit. Final implant chosen was a 50D Tritanium cluster hole shell. This was impacted into the acetabulum without difficulty. There was excellent stability and appropriate anteversion as well as abduction angle. Two length 20 screws were placed in the superoposterior quadrant for extra stability. A Trident X3 10-degree polyethylene liner 32D was chosen as the final implant. This was impacted into the acetabulum without difficulty. Next, attention was turned to preparation of the femur. A canal finder was used to enter the proximal femur. Proximal femur was sequentially broached up to a size 3. Size 3 had excellent stability and appropriate anteversion. A 127 degree neck trial and a 32 +0 head trial were placed. Lesser troch to center of the femoral head measured 56 mm. Therefore, a 32 -4 head was chosen. This measured 52 mm. The hip was reduced and taken through a range of motion. The hip was stable in all positions. There was appropriate leg length and soft tissue tension. The hip was carefully dislocated. All trials were removed. Final implant chosen was an Accolade TMZF size 3 with a 127-degree neck. This was impacted into the femoral canal without difficulty. The stem was stable with appropriate anteversion. A 32 -4 ceramic V40 Biolox delta head was chosen. This was impacted onto the femoral neck. The hip was reduced and taken through a range of motion. The hip was stable in all positions. The hip was copiously irrigated with sterile saline. Previously tagged capsule and tendons were reapproximated to the posterolateral femur through two trochanteric drill holes. The lateral fascial layer was closed using interrupted #1 Vicryls. The rest of the incision was closed in a layered fashion using 0 and 2-0 Vicryls. The skin was closed using 3-0 Monocryl and Dermabond. Sterile Adaptic, 4x4s, and paper tape were used to cover the incision. The patient's anesthesia was reversed back without difficulty. She was taken to the PACU in stable condition. Intended weightbearing will be weightbearing as tolerated. Intended DVT prophylaxis will be Coumadin with a Lovenox bridge. [id number]/[facility] #: [id number] KARLA
[2017-07-10] MEDS: oxyCODONE/Acetamin 5/325 MG* TAB PO PRN ×3 (05:25→23:12)
[2017-07-10] MEDS: ceFAZolin 1 GM in Dextrose (*) 1 GM/50 ML BAG IVPB SCH ×2 (05:25→14:28)
[2017-07-10 06:03] LABS: Hematocrit 25 % (35-47); Hemoglobin 8.4 g/dl (12.0-16.0); Mean Platelet Volume 7.6 um3 (7.4-10.4); Platelet Count 187 10^3/ul (150-450)
[2017-07-10 06:14] LABS: INR 1.18 (0.77-1.02)
[2017-07-10 06:38] LABS: EGFR Non-African American 59.2 (>60)
[2017-07-10] MEDS: Docusate CAP* 100 MG PO SCH ×2 (08:22→21:01)
[2017-07-10] MEDS: Magnesium Hydroxide LIQ* 30 ML UDC PO SCH ×2 (08:22→21:01)
[2017-07-10] MEDS: Carvedilol TAB* 3.125 MG PO SCH ×2 (08:22→20:59)
[2017-07-10] MEDS: Multivitamins/Minerals TAB PO SCH (08:22)
[2017-07-10] MEDS ORDERED: Enoxaparin(*) 30 MG/0.3 ML SYR SUBCUT SCH (12:00)
--- NOTE | 2017-07-10 12:52 | PN ---
Progress Note - Progress Note Date of Service: 07/10/17 SOAP: Subjective: []Patient seen at bedside. She is feeling well with well controlled hip pain. Pain is 0/10 at rest and 2-3/10 with activity. Denies CP, SOB, dizziness, nausea , chills. Objective: [] Vital Signs Temp 98.4 F 07/10/17 11:28 Pulse 69 07/10/17 11:28 Resp 16 07/10/17 12:16 BP 119/52 07/10/17 11:28 Pulse Ox 93 07/10/17 11:28 Intake & Output 07/09/17 07/10/17 07/10/17 18:59 06:59 18:59 Intake Total 2049 1672 874 Output Total 1150 375 125 Balance 900 1297 749 Weight 169 lb Intake: IV Fluids 2049 692 394 ABX - CEFAZOLIN 53 52 LR 1999 639 342 NS 50ML, Cefazolin 2G 50 Oral 980 480 Output: Urine 0 125 Prajapati 750 375 Estimated Blood Loss 400 Other: # Bowel Movements 1 Estimated Stool Amount Large Laboratory Last Values Hgb 8.4 g/dl (12.0-16.0) L 07/10/17 05:52 Hct 25 % (35-47) L 07/10/17 05:52 Plt Count 187 10^3/ul (150-450) 07/10/17 05:52 MPV 7.6 um3 (7.4-10.4) 07/10/17 05:52 INR (Anticoag Therapy) 1.18 (0.77-1.02) H 07/10/17 05:52 Sodium 139 mmol/L (139-145) 07/10/17 05:52 Potassium 4.4 mmol/L (3.5-5.0) 07/10/17 05:52 Chloride 104 mmol/L (101-111) 07/10/17 05:52 Carbon Dioxide 27 mmol/L (22-32) 07/10/17 05:52 Anion Gap 8 mmol/L (2-11) 07/10/17 05:52 BUN 24 mg/dL (6-24) 07/10/17 05:52 Creatinine 0.91 mg/dL (0.51-0.95) 07/10/17 05:52 Est GFR ( Amer) 76.1 (>60) 07/10/17 05:52 Est GFR (Non-Af Amer) 59.2 (>60) 07/10/17 05:52 BUN/Creatinine Ratio 26.4 (8-20) H 07/10/17 05:52 Glucose 165 mg/dL (70-100) H 07/10/17 05:52 Calcium 8.2 mg/dL (8.6-10.3) L 07/10/17 05:52 General: Well appearing, NAD LLE: Left hip dressing CDI without surrounding erythema. Thigh is soft and nontender. DF/PF intact. Sensation intact and capillary refill less than two seconds distally. DP2+ Assessment: []POD 1 s/p left total hip arthroplasty 07/09, Dr Krause Plan: []WBAT PT/OT Lovenox, coumadin 6 mg today Continue hip precautions
[2017-07-10] MEDS ORDERED: Warfarin TAB(*) 6 MG PO ONE (17:00)
[2017-07-10] MEDS: Atorvastatin* 10 MG TAB PO SCH (17:31)
[2017-07-11 05:48] LABS: Hematocrit 20 % (35-47); Hemoglobin 6.8 g/dl (12.0-16.0); Mean Platelet Volume 7.4 um3 (7.4-10.4); Platelet Count 148 10^3/ul (150-450)
[2017-07-11] MEDS: oxyCODONE TAB* 5 MG TAB PO PRN (05:51)
[2017-07-11 06:04] LABS: INR 2.91 (0.77-1.02)
--- NOTE | 2017-07-11 09:10 | PN ---
Progress Note - Progress Note Date of Service: 07/11/17 SOAP: Subjective: []Patient seen at bedside. She feels relatively well. Denies left hip pain, dizziness, SOB, CP, nausea, vomiting. She was lightheaded with physical therapy and reports fatigue. Overnight she had low BP's to 74/55. Objective: [] Laboratory Last Values Hgb 6.8 g/dl (12.0-16.0) L 07/11/17 05:33 Hct 20 % (35-47) L 07/11/17 05:33 Plt Count 148 10^3/ul (150-450) L 07/11/17 05:33 MPV 7.4 um3 (7.4-10.4) 07/11/17 05:33 INR (Anticoag Therapy) 2.91 (0.77-1.02) H 07/11/17 05:33 Sodium 139 mmol/L (139-145) 07/10/17 05:52 Potassium 4.4 mmol/L (3.5-5.0) 07/10/17 05:52 Chloride 104 mmol/L (101-111) 07/10/17 05:52 Carbon Dioxide 27 mmol/L (22-32) 07/10/17 05:52 Anion Gap 8 mmol/L (2-11) 07/10/17 05:52 BUN 24 mg/dL (6-24) 07/10/17 05:52 Creatinine 0.91 mg/dL (0.51-0.95) 07/10/17 05:52 Est GFR ( Amer) 76.1 (>60) 07/10/17 05:52 Est GFR (Non-Af Amer) 59.2 (>60) 07/10/17 05:52 BUN/Creatinine Ratio 26.4 (8-20) H 07/10/17 05:52 Glucose 165 mg/dL (70-100) H 07/10/17 05:52 Calcium 8.2 mg/dL (8.6-10.3) L 07/10/17 05:52 Vital Signs Temp 98.5 F 07/11/17 07:22 Pulse 76 07/11/17 07:22 Resp 14 07/11/17 07:22 BP 112/44 07/11/17 07:22 Pulse Ox 95 07/11/17 07:22 Intake & Output 07/10/17 07/11/17 07/11/17 18:59 06:59 18:59 Intake Total 1494 1485 Output Total 250 800 Balance 1244 685 Intake: IV Fluids 394 1035 ABX - CEFAZOLIN 52 55 LR 342 980 Oral 1100 450 Output: Urine 250 800 Other: # Bowel Movements 0 General: Well appearing, NAD LLE: Left hip dressing changed. Incision CDI. DF/PF intact. Sensation intact and capillary refill less than two seconds distally. DP2+ BL LE: Calves supple and nontender without erythema, edema or palpable cords Assessment: []POD 2 s/p left total hip arthroplasty 07/09, Dr Krause Acute bloodloss anemia Plan: []WBAT PT/OT Stop Lovenox, coumadin 0 mg today Continue hip precautions Anemia along with low BPs, lightheadedness- give 1 unit PRBC
[2017-07-11] MEDS: Carvedilol TAB* 3.125 MG PO SCH ×2 (09:39→22:01)
[2017-07-11] MEDS: Multivitamins/Minerals TAB PO SCH (09:39)
[2017-07-11] MEDS: Magnesium Hydroxide LIQ* 30 ML UDC PO SCH ×2 (09:40→22:01)
[2017-07-11] MEDS: Docusate CAP* 100 MG PO SCH ×2 (09:40→22:01)
[2017-07-11 10:10] LABS: Hematocrit 22 % (35-47); Hemoglobin 7.3 g/dl (12.0-16.0)
[2017-07-11] MEDS: Atorvastatin* 10 MG TAB PO SCH (17:52)
[2017-07-11] MEDS: oxyCODONE/Acetamin 5/325 MG* TAB PO PRN (17:54)
[2017-07-12 05:39] LABS: Hematocrit 21 % (35-47); Mean Platelet Volume 7.8 um3 (7.4-10.4); Platelet Count 157 10^3/ul (150-450)
[2017-07-12 05:59] LABS: INR 2.15 (0.77-1.02)
[2017-07-12] MEDS: Docusate CAP* 100 MG PO SCH (07:55)
[2017-07-12] MEDS: Magnesium Hydroxide LIQ* 30 ML UDC PO SCH (07:55)
[2017-07-12] MEDS: Multivitamins/Minerals TAB PO SCH (07:57)
[2017-07-12] MEDS: oxyCODONE/Acetamin 5/325 MG* TAB PO PRN ×2 (07:57→13:56)
[2017-07-12] MEDS: Carvedilol TAB* 3.125 MG PO SCH (07:57)
--- NOTE | 2017-07-12 11:37 | PN ---
Progress Note - Progress Note Date of Service: 07/12/17 SOAP: Subjective: 81 y/o female s/p L total hip replacement b DR. Krause 07/09/2017. Patient reports feeling well, working well with PT< will have and daugther to help at home. NO lightheaded/ dizziness, SOB. eager for D/C. VSS, afebrile overnight. Objective: General- Well appearing, NAD, AO SItting in chair comfortably. MSK- LLE- DF/PF += b/l, PT 2+, negative homans sign, I c/i, minimal serousang drainage from prox incision site. minimal ecchymosis around incision, no induration, non-TTP. Vital Signs Temp 99.7 F 07/12/17 08:01 Pulse 86 07/12/17 08:01 Resp 16 07/12/17 10:54 BP 115/61 07/12/17 08:01 Pulse Ox 90 07/12/17 08:01 Intake & Output 07/11/17 07/12/17 07/12/17 18:59 06:59 18:59 Intake Total 320 700 Output Total 525 550 300 Balance -205 150 -300 Intake: Oral 320 700 Output: Urine 525 550 300 Other: Estimated Void Medium Medium # Bowel Movements 0 Assessment: Stable 81 y/o female s/p L total hip replacement b DR. Krause 07/09/2017. Plan: - DVT prophylaxis- coumadin - Continue PT/ OT with VNS - Follow up with Dr. Krause within 10-14 days - H&H - stable-. remains low, however consistent with 07/11 draw. Continue to monitor, repeat CBC 07/15 with home care - post-op IV ABX - completed. - D/C to home today Acetaminophen (Tylenol Tab*) 650 mg PO Q4H PRN PRN Reason: PAIN OR TEMPERATURE Last Admin: 07/10/17 17:46 Dose: 650 mg Atorvastatin Calcium (Lipitor*) 10 mg PO QPM [facility] Last Admin: 07/11/17 17:52 Dose: 10 mg Bisacodyl (Dulcolax Supp*) 10 mg OK DAILY PRN PRN Reason: constipation Carvedilol (Coreg Tab*) 3.125 mg PO BID [facility] Last Admin: 07/12/17 07:57 Dose: 3.125 mg Cyclobenzaprine HCl (Flexeril Tab*) 10 mg PO TID PRN PRN Reason: SPASMS Last Admin: 07/09/17 20:22 Dose: 10 mg Diphenhydramine HCl (Benadryl Iv*) 12.5 mg IV Q6H PRN PRN Reason: PRURITIS Docusate Sodium (Colace Cap*) 100 mg PO BID [facility] Last Admin: 07/12/17 07:55 Dose: Not Given Lactated Ringer's (Lactated Ringers 1000 Ml Bag*) 1,000 mls @ 75 mls/hr IV PER RATE [facility] Last Admin: 07/11/17 00:59 Dose: 75 mls/hr Lactulose (Lactulose*) 30 ml PO Q6H PRN PRN Reason: constipation Magnesium Hydroxide (Milk Of Magnesia Liq*) 30 ml PO BID [facility] Last Admin: 07/12/17 07:55 Dose: Not Given Magnesium Hydroxide (Milk Of Magnesia Liq*) 30 ml PO Q6H PRN PRN Reason: constipation Morphine Sulfate (Morphine Vial*) 2 mg IV Q2H PRN PRN Reason: PAIN Multivitamins/Minerals (Theragran/Minerals Tab*) 1 tab PO DAILY [facility] Last Admin: 07/12/17 07:57 Dose: 1 tab Ondansetron HCl (Zofran Inj*) 4 mg IV Q6H PRN PRN Reason: nausea Ondansetron HCl (Zofran Tab*) 4 mg PO Q6H PRN PRN Reason: NAUSEA Oxycodone HCl (Roxycodone Tab*) 10 mg PO Q4H PRN PRN Reason: SEVERE PAIN Last Admin: 07/11/17 05:51 Dose: 10 mg Oxycodone/Acetaminophen (Percocet 5/325 Tab*) 2 tab PO Q4H PRN PRN Reason: PAIN Last Admin: 07/12/17 07:57 Dose: 2 tab Oxycodone/Acetaminophen (Percocet 5/325 Tab*) 1 tab PO Q4H PRN PRN Reason: PAIN Last Admin: 07/10/17 17:46 Dose: 1 tab Pharmacy Profile Note (Coumadin Daily Reminder*) 1 note FOLLOW UP 1700 [facility] Last Admin: 07/11/17 15:14 Dose: Not Given Polyethylene Glycol/Electrolytes (Miralax*) 17 gm PO DAILY PRN PRN Reason: Constipation
[2017-07-12 12:33] VITALS: BP 99/55
== END 2017-07-12 14:39 | disposition home health service (06) | DRG 470 ==
LOC: AA 11:24 → SSU 18:45 → AA 18:45 → SSU 18:46
PROVIDERS: ADMIT Orthopaedic Surgery Adult Reconstructive Orthopaedic Surgery; ATTEND Orthopaedic Surgery Adult Reconstructive Orthopaedic Surgery
PROC: 0SRB04A Replacement of Left Hip Joint with Ceramic on Polyethylene Synthetic Substitute, Uncemented, Open Approach (ICD-10-PCS; 2017-07-10)
PROC: 30233N1 Transfusion of Nonautologous Red Blood Cells into Peripheral Vein, Percutaneous Approach (ICD-10-PCS; principal; 2017-07-11)
DX: M16.12 Unilateral primary osteoarthritis, left hip (principal); D62 Acute posthemorrhagic anemia; Z96.653 Presence of artificial knee joint, bilateral; I10 Essential (primary) hypertension; E55.9 Vitamin D deficiency, unspecified; E66.9 Obesity, unspecified; H35.3130 Nonexudative age-related macular degeneration, bilateral, stage unspecified; J30.9 Allergic rhinitis, unspecified; Z98.49 Cataract extraction status, unspecified eye; Z88.8 Allergy status to other drugs, medicaments and biological substances; Z83.3 Family history of diabetes mellitus; Z83.6 Family history of other diseases of the respiratory system; Z80.3 Family history of malignant neoplasm of breast; Z83.511 Family history of glaucoma; Z80.6 Family history of leukemia; Z80.0 Family history of malignant neoplasm of digestive organs; Z81.8 Family history of other mental and behavioral disorders; Z68.31 Body mass index [BMI] 31.0-31.9, adult; I25.2 Old myocardial infarction
CPT/HCPCS: 36415; 72170; 80048; 85014; 85018; 85049; 85610; 86850; 86900; 86901; 86922; A9270-GY; C1713; C1776; G8978-GP-CI; G8978-GP-CJ; G8979-GP-CI; G8987-GO-CJ; G8987-GO-CK; G8988-GO-CI; J0690; J1100; J1650; J2250; J2405; J2704; J3010; P9040

== ENCOUNTER 2019-04-14 09:00 | Inpatient (IN) | payer MEDICARE, BC ==
--- NOTE | 2019-04-07 09:00 | HP ---
HISTORY AND PHYSICAL: DATE OF SURGERY: 04/14/19 DATE OF OFFICE VISIT: 04/06/19 SURGEON: Fozia Krause MD.* (DICTATED BY GISSEL CAMPOS) PROCEDURE: Right total hip arthroplasty. CHIEF COMPLAINT: Right hip pain. HISTORY OF PRESENT ILLNESS: Ms. Villafana is an 83-year-old female with severe endstage osteoarthritis of the right hip. She has failed conservative treatment and elected to proceed with a right total hip arthroplasty. PAST MEDICAL HISTORY: High cholesterol, coronary artery disease, and macular degeneration PAST SURGICAL HISTORY: Bilateral total knee arthroplasties, left total hip arthroplasty, hysterectomy, diabetes. CURRENT MEDICATIONS: 1. Tramadol 50 mg every 8 hours as needed. 2. PreserVision AREDS twice a day with food. 3. Vitamin D. 4. Colace. 5. Aspirin 81 mg a day. 6. Atorvastatin. 7. Calcium 10 mg a day. 8. Carvedilol 3.125 mg twice a day. ALLERGIES: NOVOCAIN. FAMILY HISTORY: Cancer, Parkinson's disease, and COPD. SOCIAL HISTORY: She is an 83-year-old female. She lives with her and daughter. She does not smoke. REVIEW OF SYSTEMS: A complete 14 point review of systems was reviewed with the patient and was all negative or noncontributory. She denies history of DVT, PE , hepatitis, HIV or anesthesia problems. PHYSICAL EXAMINATION GENERAL: She is well developed, well nourished, in no acute distress. VITAL SIGNS: She is 61 inches tall, weighs 163 pounds, her blood pressure is 139/96, her heart rate is 82. HEENT: Normocephalic, atraumatic. NECK: Supple. No palpable lymph nodes. PULMONARY: Lungs are clear to auscultation bilaterally. CARDIO: Regular rhythm. Strong S1 and S2. ABDOMEN: Soft, nontender, nondistended. NEUROLOGIC: She is alert and oriented x3. MUSCULOSKELETAL: Right lower extremity skin is intact. There are no open wounds or abrasions. She walks with antalgic type gait favoring her right hip. She has decreased internal and external rotation of the right hip reproducing groin pain, and she is able to dorsiflex and plantarflex with a 2+ dorsalis pedis pulse and intact sensation. ASSESSMENT AND PLAN: Ms. Villafana is an 83-year-old female with severe end-stage osteoarthritis of the right hip. She has failed conservative treatment and elected to proceed with a right total hip arthroplasty. The surgery is scheduled for 04/14/[address] Krause discussed the risks and benefits of the surgery at today's visit and all of her questions were answered. She will follow up with Dr. Krause in 2 weeks after the surgery. GISSEL CAMPOS [id number]/[facility] #: [id number] MTDNyla
[~2019-04-14 09:00] MED LIST changes: +Acetaminophen TAB* 325 MG PO ONE; -Buffered Lidocaine 0.9% SYRIN* 5 ML/SYR SYRINGE INTRADERM ONE; +Buffered Lidocaine 1% SYRIN* 1 ML/SYRINGE INTRADERM ONE; -DiMENhydriNATE IV* 50 MG/ML VIAL IV PUSH PRN; -Famotidine TAB* 20 MG PO ONE; +Lactated Ringers 1000 ML Bag* 1,000 ML IV SCH; -Morphine INJ* 2 MG/ML 1 ML CARPUJECT IV PRN; -Naloxone* 0.4 MG/ML 1 ML VIAL IV PRN; -PROCHLORPERAZINE INJ 5 MG/ML 2 ML VIAL IV PRN; +Tranexamic Acid 1,000 MG in NS 0.9% 50 ML* (outpatient use) IV SCH; +celeCOXIB CAP* 200 MG PO ONE; -fentaNYL* 50 MCG/ML 2 ML VIAL (100 MCG VIAL) IV PRN; -oxyCODONE/Acetamin 5/325 MG* TAB PO PRN
--- OUTSIDE RECORDS SUMMARY | 2019-04-14 12:22 | XMS REPORT | Continuity of Care Document ---
:1935 External Reference #:[id number] Author Name Susannah Thorne MD Address [address] [place] [address] Care Team Providers Name Role Phone Maria L Natarajan MD - Orthopaedic Care Team Information Inside Sales Advisor [phone] - Adult Care Team Information Inside Sales Advisor [phone] Reconstructive Orthopaedic Surgery Radha Thorne MD - Gynecologic Care Team Information Inside Sales Advisor Oncology Problems Active Problems Provider Date Overweight Susannah Thorne MD Onset: 04/16/2011 Vitamin D deficiency Susannah Thorne MD Onset: 04/16/2011 Allergic rhinitis Susannah Thorne MD Onset: 04/16/2011 Degenerative joint disease involving multiple Susannah Thorne MD Onset: joints Arthroplasty of knee Susannah Thorne MD Onset: 07/05/2014 Nonexudative age-related macular degeneration Susannah Thorne MD Onset: Family history of diabetes mellitus Susannah Thorne MD Onset: 06/27/2017 Old myocardial infarction Susannah Thorne MD Onset: 06/16/2018 Prosthetic arthroplasty of the hip Susannah Thorne MD Onset: 06/26/2018 Mixed hyperlipidemia Susannah Thorne MD Onset: 08/28/2018 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 admits not enough in the spring [place] [address] and increases walking then Allergies, Adverse Reactions, Alerts Active Allergies Reaction Severity Comments Date Novocaine 06/16/2018 Inactive Allergies NKDA 07/05/2014 Medications Active Medications SIG Qnty Indications Ordering Provider Date Aspirin 81 Low Dose 1 by mouth 360units I25.10 Susannah Thorne, 2018 every day with MD 81mg Chewtabs food Tramadol HCL take 1 tablet M25.[address] 02/09/2019 50mg by mouth every Tablets 8 hours if needed for pain, really taking only 1 daily Carvedilol 1 by mouth 180tabs I25.2 Susannah Thorne, 09/08/2018 3.125mg twice daily MD Tablets I25.10 Atorvastatin Calcium 1 by mouth every 90tabs I25.10 Susannah Thorne MD 08/05/2018 10mg day Tablets E78.2 Vitamin D3 2 by mouth 180tabs E55.9 Susannah Thorne MD 07/05/2014 1000Unit daily with Tablets dinner with meat fat oil Preservision Areds 1 by mouth H35.3130 Susannah Thorne MD twice a day Capsules Ibuprofen 200 2 po q 6 hours Unknown 200mg prn Tablets Immunizations CPT Code Status Date Vaccine Reaction Lot # 32433 Given 01/21/2019 Influenza Vaccine, Inactivated, Subunit, [place] [address] Given 07/18/2018 Tdap (Boostrix)tetanus, diptheria toxoid & [facility] acellular pertussis Q2039 Given 12/25/2017 Flu Vaccine NOS Q2036 Given 01/09/2017 Flulaval Immunization [facility] 57027 Given 01/25/2016 Fluzone Highdose Age 65 And Over [facility] Preservative & Antibiotic Free Q2037 Given 03/23/2015 Fluvirin Immunization 21543 Given 07/05/2014 Prevnar 13 Pneumococal Conjugate Vaccine [id number] 65502 Given 02/21/2014 Fluzone Highdose Age 65 And Over Preservative & Antibiotic Free 68507 Given 01/25/2014 Influenza Virus Vaccine,Quadrivalent,Split,Preserv Free, 0.5mL,[place] [address] Given 03/28/2013 Afluria Or Fluvirin Flu Vac Intramuscular 93766 Given 03/03/2009 Afluria Or Fluvirin Flu Vac Intramuscular 31040 Given 03/25/2007 Immunization Td 7 Yrs Or Older 62750 Given 03/25/2005 Pneumococcal 23 Immunization Adult Or Immunosuppressed Patient 59215 Refused 07/30/2018 Shingrix (Shingles) Zoster Vaccine HZV, Recombinant, Subunit, Adj 10151 Refused 06/26/2018 Tdap (Boostrix)tetanus, diptheria will get at pharmacy toxoid & acellular pertussis 78418 Refused 06/26/2018 Shingrix (Shingles) Zoster Vaccine HZV, Recombinant, Subunit, Adj 02793 Refused 07/20/2016 Zoster (Zostavax) 34770 Refused 07/05/2014 Zoster (Zostavax) Vital Signs Date Vital Result Comment 04/07/2019 2:31pm Body Temperature 97.5 F tympanic Weight 162.00 lb Heart Rate 84 /min BP Systolic 130 mmHg BP Diastolic 70 mmHg Respiratory Rate 18 /min Height 61 inches 5'1" SA,MAKEUP EDITOR 08/13/18 O2 % BldC Oximetry 96 % Room Air BMI (Body Mass Index) 30.6 kg/m2 02/27/2019 10:53am Weight 167.00 lb with boots Heart Rate 65 /min BP Systolic 120 mmHg BP Diastolic 74 mmHg Respiratory Rate 18 /min Height 61 inches 5'1" SA,MAKEUP EDITOR 08/13/18 O2 % BldC Oximetry 96 % ra BMI (Body Mass Index) 31.6 kg/m2 Results Test Acquired Date Facility Test Result H/L Range Note Comprehensive Met 02/23/2019 [facility] Sodium 142 mmol/L 135-146 1, 2 [facility] Potassium 4.4 mmol/L 3.5-5.2 Chloride# 102 mmol/L 97-110 3 Carbon Dioxide 31 mmol/L 24-34 Calcium 9.4 mg/dL 8.5-10.5 4 Glucose 107 mg/dL High 70-105 BUN 19 mg/dL 6-26 Creatinine 0.8 mg/dL 0.5-1.4 Total Protein 6.5 g/dL 6.0-8.0 Albumin 4.0 g/dL 3.6-4.9 Globulin 2.5 g/dL 2.0-3.5 A/G Ratio 1.6 Ratio 1.0-2.2 Total Bilirubin 0.4 mg/dL 0.1-1.3 Alkaline Phosphatase 42 U/L 24-140 Alt 15 U/L 3-42 Ast 16 U/L 8-42 Anion Gap 9 mmol/L 5-15 5 Female Egfr 66 >60 6 Male Egfr 81 >60 7 Laboratory test finding 02/23/2019 [facility] 49 U/L 12-199 Lipid 02/23/2019 [facility] Cholesterol 110 mg/dL 50-199 Triglycerides 130 mg/dL 30-200 HDL 42 mg/dL 35-85 8 Chol/ HDL Ratio 2.6 ratio Low 3.7-5.6 VLDL 26 mg/dL 2-29 LDL (Calc) 42 mg/dL 20-99 9 CBC with Auto Diff-[facility] 02/23/2019 [facility] WBC 8.1 K/uL 4.1-11.0 10 RBC 4.35 M/uL 4.00-5.40 11 Hemoglobin 13.9 gm/dL 12.0-16.0 12 Hematocrit 41.6 % 36.0-47.0 13 MCV 95.6 fL High 80.0-95.0 14 MCH 31.9 pg 27.0-32.0 15 MCHC 33.4 g/dL 32.0-36.0 16 RDW 14.2 % 10.5-14.5 17 PLT Count 237 K/ul 150-400 18 MPV 8.3 FL 7.1-10.7 Neutrophil 58.8 % 35.0-75.0 19 Lymphocyte 26.2 % 16.0-52.0 20 Monocyte 11.0 % High 0.0-8.0 21 Eosinophil 3.2 % 0.0-5.0 Basophil 0.8 % 0.0-4.0 Abs Neutrophils 4.8 K/uL 1.8-7.7 22 Abs Lymphocytes 2.1 K/uL 1.2-4.8 23 Abs Monocytes 0.9 K/uL High 0.0-0.8 24 Abs Eosinophils 0.3 K/uL 0.0-0.5 25 Abs Basophils 0.1 K/uL 0.0-0.2 26 1 before vsiit 01/2019 2 Updated reference range on new analyzer 3 Updated reference range on new analyzer 4 Updated reference range 07-23-2018 5 Updated Reference Range 6 Concerning GFR Guidelines for Americans: Normal function or mild renal disease, if clinically at risk: >/= 60 mL/min Moderately decreased: 30-59 Severely decreased: 15-29 Renal failure: <15 There is reduced accuracy above 60ml/min/1.73 m squared, but the numeric value may be clinically useful in the near 60 range 7 Concerning GFR Guidelines: Normal function or mild renal disease, if clinically at risk: >/= 60 mL/min Moderately decreased: 30-59 Severely decreased: 15-29 Renal failure: <15 There is reduced accuracy above 60ml/min/1.73 m squared, but the numeric value may be clinically useful in the near 60 range Glomerular Filtration Rate (GFR) is estimated based on the CKD-EPI equation, which assumes a steady state for [...] drugs that are excreted by the kidneys. 8 Per NCEP ATP III Guidelines: Results lower than 40 mg/dL are suggestive of increased risk for coronary artery disease. Results > or = to 60 mg/dL are considered a negative risk factor. 9 Per NCEP ATP III Guidelines: Normal Population <130 Patients with medical conditions: CHD/DM Optimal: <100 Borderline high: 130-159 High: 160-189 Very high: >189 10 Updated Reference Range 01/2019 11 Updated Reference Range 01/2019 12 Updated Reference Range 01/2019 13 Updated Reference Range 01/2019 14 Updated Reference Range 01/2019 15 Updated Reference Range 01/2019 16 Updated Reference range 01/2019 17 Updated Reference range 01/2019 18 Updated Reference Range 01/2019 19 Updated Reference Range 01/2019 20 Updated Reference Range 01/2019 21 Updated Reference Range 01/2019 22 Updated Reference Range 01/2019 23 Updated Reference Range 01/2019 24 Updated Reference Range 01/2019 25 Updated Reference Range 01/2019 26 Updated Reference Range 01/2019 Procedures Date Code Description Status 04/07/2019 95759 Electrocardiogram Complete Completed 07/14/2014 90084548 Mammogram Completed 03/25/2004 88726854 Colonoscopy Completed Medical Devices Description No Information Available Encounters Type Date Location Provider Dx Diagnosis Office Visit 02/27/2019 [facility] Susannah Thorne MD I25.10 Athscl heart disease 10:15a of [place] coronary artery w/o ang pctrs E78.2 Mixed hyperlipidemia M25.552 Pain in LEFT hip E66.9 Obesity, unspecified R00.2 Palpitations H35.3130 Nexdtve age-related mclr degn, bilateral, stage unspecified Z68.31 Body mass index (BMI) 31.0-31.9, adult Assessments Date Code Description Provider 04/07/2019 M25.551 Pain in RIGHT hip Susannah Thorne MD 04/07/2019 Z01.818 Encounter for other preprocedural Susannah Thorne MD examination 04/07/2019 M16.0 Bilateral primary osteoarthritis of hip Susannah Thorne MD 04/07/2019 I25.10 Atherosclerotic heart disease of [place] Susannah Thorne MD coronary artery without angina pectoris 04/07/2019 E78.2 Mixed hyperlipidemia Susannah Thorne MD 04/07/2019 H35.3130 Nonexudative age-related macular Susannah Thorne MD degeneration, bilateral, st 04/07/2019 I25.2 Old myocardial infarction Susannah Thorne MD 04/07/2019 E66.9 Obesity, Susannah Martines MD 04/07/2019 Z68.30 Body mass index (BMI) 30.0-30.9, adult Susannah Thorne MD 02/27/2019 I25.10 Atherosclerotic heart disease of [place] Susannah Thorne MD coronary artery without angina pectoris 02/27/2019 E78.2 Mixed hyperlipidemia Susannah Thorne MD 02/27/2019 M25.552 Pain in LEFT hip Susannah Thorne MD 02/27/2019 E66.9 Obesity, unspecified Susannah Thorne MD 02/27/2019 R00.2 Palpitations Susannah Thorne MD 02/27/2019 H35.3130 Nonexudative age-related macular Susannah Thorne MD degeneration, bilateral, st 02/27/2019 Z68.31 Body mass index (BMI) 31.0-31.9, adult Susannah Thorne MD 02/23/2019 E78.2 Mixed hyperlipidemia Susannah Thorne MD 02/23/2019 E78.2 Mixed hyperlipidemia Schedule, Laboratory 02/23/2019 I25.10 Atherosclerotic heart disease of [place] Susannah Thorne MD coronary artery without angina pectoris 02/23/2019 I25.10 Atherosclerotic heart disease of [place] Schedule, Laboratory coronary artery without angina pectoris 02/23/2019 E78.2 Mixed hyperlipidemia [facility] 02/23/2019 I25.10 Athscl heart disease of [place] coronary [facility] artery w/o ang pctrs Plan of Treatment Future Appointment(s):06/29/2019 11:10 am - Schedule, Laboratory at [facility]2019 11:00 am - Susannah Thorne MD at [facility]04/07/2019 - Susannah Thorne, MDM25.551 Pain in RIGHT hipComments:for right hip replacement with Dr Krause I also feel she should have inpatient rehab post opher fitness is not great, she does not have time for pre surgery physical therapyI don't need to see her post op unless there are complications or concernsFollow up:as eifgqczG26.818 Encounter for other preprocedural examinationComments:By history and exam pt appears cardiovasc and cardiopulm stable for proposed surgery, labs are pending per zandra and let me know if you want me to review them. CC faxed to requesting surgeon of this note and labs and ekg.M16.0 Bilateral primary osteoarthritis of hipI25.10 Atherosclerotic heart disease of [place] coronary artery without angina pectorisComments:Ischemic cardiac disease, stable without angina--Patient appears stable without symptoms. Advised to continue meds to control risk factors, statin therapy and BP control. Encouraged continued healthydiet modified in fat and cholesterol with regular daily exercise. Call for symptoms of chest pressure, pain tightness, at rest or with exertion, or increasing SOB/developing exercise intolerance. Call for concerns. Off aspirin 5 days before surgery, restart as soon as able post op.E78.2 Mixed hyperlipidemiaComments:high cholreviewed 2018 AHA guidelines, due to known stable ischemic heart diasease, there is high cardiovascular riskPt with ldl reduction over 50% on atorvatatin 10mg so continue this dosing indefinately Aspirin paused for surgery For lifestyle, we also recommend: Low fat ( under 30gm per day), low chol diet ( under 300mg per day chol)H35.3130 Nonexudative age-related macular degeneration, bilateral, stI25.2 Old myocardial jxsnsppceuX99.9 Obesity, unspecifiedComments:continue to work on diet, exercise , weight lossZ68.30 Body mass index (BMI) 30.0-30.9, adultComments:recommend reduced calorie intake, healthy eating and regular exercise for weight reduction Functional Status Description No Information Available Mental Status Description No Information Available Referrals Description No Information Available
--- OUTSIDE RECORDS SUMMARY | 2019-04-14 12:22 | XMS REPORT | Continuity of Care Document ---
:1935 External Reference #:[id number] Author Name Fozia Krause M.D. (transmitted by agent of provider Maria L Wiley) Address [address] [place] [address] Care Team Providers Name Role Phone Susannah Thorne MD - Family Care Team Information Supervisor Rod Placing [phone] Medicine Problems Active Problems Provider Date Localized, primary osteoarthritis of the pelvic Fozia Krause M.D. Onset: region and thigh Prosthetic arthroplasty of the hip Fzoia Krause M.D. Onset: 08/16/2017 Social History Type Date Description Comments Sex Unknown ETOH Use Denies alcohol use Tobacco Use Start: Unknown Patient has never smoked Recreational Drug Use Denies Drug Use Smoking Status Reviewed: 04/06/19 Patient has never smoked Exercise Type/Frequency Exercises sporadically Allergies, Adverse Reactions, Alerts Active Allergies Reaction Severity Comments Date Novacaine Swelling in face 01/31/2017 Inactive Allergies NKDA 08/03/2015 Medications Active Medications SIG Qnty Indications Ordering Provider Date Lidoderm apply 1 patch as 30units Fozia Krause, 03/11/2019 5% Patches needed for 3 M.D. days Tramadol HCL 1 tab every 8 42tabs Fozia Krause, 02/13/2019 50mg hours as needed M.D. Tablets for pain Compression Stockings 1units M16.12 [facility] Krause, 07/19/2017 [facility] Preservision Areds 1 capsule twice Unknown a day w/food Tablets Vitamin D 1 by mouth every Unknown 2000Unit day Tablets Dok take one capsule Unknown 100mg Capsules by mouth twice daily as needed for constipation. Aspirin Adult Low 1 by mouth every Unknown Dose day 81mg Tablets DR Zambrano Unknown Atorvastatin Calcium 1 by mouth every Unknown day 10mg Tablets Carvedilol 1 by mouth twice Unknown 3.125mg a day Tablets Medications Administered in Office Medication SIG Qnty Indications Ordering Provider Date Depomedrol 40MG Fozia Krause M.D. 06/23/2018 Injection Depomedrol 40MG Maria L Natarajan M.D. 08/03/2015 Injection Immunizations Description No Information Available Vital Signs Date Vital Result Comment 04/06/2019 1:25pm Height 61 inches 5'1" Weight 163.00 lb Heart Rate 82 /min BP Systolic 139 mmHg BP Diastolic 96 mmHg Body Temperature 98.3 F Pain Level 5 BMI (Body Mass Index) 30.8 kg/m2 03/11/2019 10:34am Height 61 inches 5'1" Weight 161.00 lb Heart Rate 64 /min BP Systolic 138 mmHg BP Diastolic 82 mmHg Respiratory Rate 18 /min Pain Level 10 BMI (Body Mass Index) 30.4 kg/m2 Results Test Acquired Date Facility Test Result H/L Range Note CBC Auto 02/11/2019 [facility] White Blood 7.0 10^3/uL Normal 3.5-10.[address] [place] [address] [phone] Red Blood Count 4.44 10^6/uL Normal 3.70-4.87 Hemoglobin 14.0 g/dL Normal 12.0-16.0 Hematocrit 41 % Normal 35-47 Mean Corpuscular Volume 93 fL Normal 80-97 Mean Corpuscular Hemoglobin 32 pg High 27-31 Mean Corpuscular HGB Conc 34 g/dL Normal 31-36 Red Cell Distribution Width 14 % Normal 10-15 Platelet Count 250 10^3/uL Normal 150-450 Mean Platelet Volume 8.2 fL Normal 7.4-10.4 Abs Neutrophils 4.2 10^3/uL Normal 1.5-7.7 Abs Lymphocytes 1.9 10^3/uL Normal 1.0-4.8 Abs Monocytes 0.6 10^3/uL Normal 0-0.8 Abs Eosinophils 0.3 10^3/uL Normal 0-0.6 Abs Basophils 0.1 10^3/uL Normal 0-0.2 Abs Nucleated RBC 0.0 10^3/uL Granulocyte % 59.9 % Lymphocyte % 27.3 % Monocyte % 8.3 % Eosinophil % 3.6 % Basophil % 0.9 % Nucleated Red Blood Cells % 0.0 Laboratory test 02/11/2019 [facility] C Reactive 1.12 mg/L Normal <8.[address] [place] [address] [phone] Procedures Description No Information Available Medical Devices Description No Information Available Encounters Type Date Location Provider Dx Diagnosis Office Visit 03/11/2019 [facility] Fozia Krause M25.551 Pain in right hip 10:30a at [facility] M16.11 Unilateral primary osteoarthritis, right hip Office Visit 02/09/2019 10:30a [facility] M25.552 [facility] Presence of left artificial hip joint Assessments Date Code Description Provider 04/06/2019 M25.551 Pain in right hip Fozia Krause M.D. 04/06/2019 M16.11 Unilateral primary osteoarthritis, right hip Fozia Krause M.D. 03/11/2019 M25.551 Pain in right hip Fozia Krause M.D. 03/11/2019 M16.11 Unilateral primary osteoarthritis, right hip Fozia Krause M.D. 02/09/2019 M25.552 Pain in left hip Fozia Krause M.D. 02/09/2019 Z96.642 Presence of left artificial hip joint Fozia Krause M.D. Plan of Treatment Future Appointment(s):04/27/2019 3:30 pm - Fozia Krause M.D. at [facility] at Hkiwkd0404/14/2019 8:30 am - Fozia Krause M.D. at [facility] at Oocxew0504/06/2019 - Fozia Krause M.D.M25.551 Pain in right hipFollow up:Follow up: 2 weeks after wxhyckaL55.11 Unilateral primary osteoarthritis, right hip Functional Status Description No Information Available Mental Status Description No Information Available Referrals Description No Information Available
--- OUTSIDE RECORDS SUMMARY | 2019-04-14 12:22 | XMS REPORT | Continuity of Care Document ---
:1935 External Reference #:[id number] Author Name Susannah Thorne MD Address [address] [place] [address] Care Team Providers Name Role Phone Maria L Natarajan MD - Orthopaedic Care Team Information Mine Inspector [employer] Surgery Fozia Krause DR - Adult Care Team Information Mine Inspector Federal [phone] Reconstructive Orthopaedic Surgery Radha Thorne MD - Gynecologic Care Team Information Mine Inspector Federal Oncology Problems Active Problems Provider Date Overweight [...] 08/28/2018 Atherosclerosis of coronary artery without Susannah Thorne MD Onset: 2018 angina pectoris Social History Type Date Description Comments Sex Unknown ETOH Use Denies alcohol use Tobacco Use Start: Unknown Patient has never smoked Smoking Status Reviewed: 08/13/18 Patient has never smoked Exercise Exercises sporadically Exercises Type/Frequency sporadically, enjoys walking in good weather. admits not enough in the spring [place] to [place] [address] and increases walking then Allergies, Adverse [...] Code Status Date Vaccine Reaction Lot # [id number] Given 01/21/2019 Influenza Vaccine, Inactivated, Subunit, [place] [address] Given 07/18/2018 Tdap (Boostrix)tetanus, diptheria toxoid & [facility] acellular pertussis Q2039 Given 12/25/2017 Flu Vaccine NOS Q2036 Given 01/09/2017 Flulaval Immunization [facility] 49956 Given 01/25/2016 Fluzone Highdose Age 65 And Over [facility] Preservative & Antibiotic Free Q2037 Given 03/23/2015 Fluvirin Immunization 59596 Given 07/05/2014 Prevnar 13 Pneumococal Conjugate Vaccine [id number] 05502 Given 02/21/2014 Fluzone Highdose Age 65 And Over Preservative & Antibiotic Free 40988 Given 01/25/2014 Influenza Virus Vaccine,Quadrivalent,Split,Preserv Free, 0.5mL,[place] [address] Given 03/28/2013 Afluria Or Fluvirin Flu Vac Intramuscular 79467 Given 03/03/2009 Afluria Or Fluvirin Flu Vac Intramuscular 27149 Given 03/25/2007 Immunization Td 7 Yrs Or Older 91567 Given 03/25/2005 Pneumococcal 23 Immunization Adult Or Immunosuppressed Patient 26273 Refused 07/30/2018 Shingrix (Shingles) Zoster Vaccine HZV, Recombinant, Subunit, Adj 65384 Refused 06/26/2018 Tdap (Boostrix)tetanus, diptheria will get at pharmacy toxoid & acellular pertussis 63130 Refused 06/26/2018 Shingrix (Shingles) Zoster Vaccine HZV, Recombinant, Subunit, Adj 24168 Refused 07/20/2016 Zoster (Zostavax) 30660 Refused 07/05/2014 Zoster (Zostavax) Vital Signs Date Vital Result Comment 02/27/2019 10:53am Weight 167.00 lb with boots Heart Rate 65 /min BP Systolic 120 mmHg BP Diastolic 74 mmHg Respiratory Rate 18 /min Height 61 inches 5'1" [facility] 08/13/18 O2 % BldC Oximetry 96 % ra BMI (Body Mass Index) 31.6 kg/m2 09/30/2018 2:54pm Weight 160.00 lb Heart Rate 71 /min BP Systolic 124 mmHg BP Diastolic 78 mmHg Respiratory Rate 16 /min Height 61 inches 5'1" [facility] 08/13/18 BMI (Body Mass Index) 30.2 kg/m2 Results Test Acquired Date Facility Test [...] Range 01/2019 Procedures Date Code Description Status 07/14/2014 62668417 Mammogram Completed 03/25/2004 [id number] Colonoscopy Completed Medical Devices Description No Information Available Encounters Type Date Location Provider Dx Diagnosis Office Visit 09/30/2018 [facility] Susannah Thorne MD I25.10 Athscl heart disease 2:[place] coronary artery w/o ang pctrs E78.2 Mixed hyperlipidemia I25.2 Old myocardial infarction E66.9 Obesity, unspecified 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 N95.0 Postmenopausal bleeding R10.13 Epigastric pain Z68.30 Body mass index (BMI) 30.0-30.9, adult Assessments Date Code Description Provider 02/27/2019 I25.10 Atherosclerotic heart disease of [place] Susannah Thorne MD coronary artery without angina [...] Laboratory 02/23/2019 I25.10 Atherosclerotic heart disease of [place] Susannah Thorne MD coronary artery without angina pectoris 02/23/2019 I25.10 Atherosclerotic heart disease of [place] Schedule, Laboratory coronary artery without angina pectoris 02/23/2019 E78.2 Mixed hyperlipidemia [facility] 02/23/2019 I25.10 Athscl heart disease of [place] coronary [facility] artery w/o ang pctrs 09/30/2018 I25.10 Atherosclerotic heart disease of [place] Susannah Thorne MD coronary artery with 09/30/2018 E78.2 Mixed hyperlipidemia Susannah Thorne MD 09/30/2018 I25.2 Old myocardial infarction Susannah Thorne MD 09/30/2018 E66.9 Obesity, unspecified Susannah Thorne MD 09/30/2018 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 09/30/2018 N95.0 Postmenopausal bleeding Susannah Thorne MD 09/30/2018 R10.13 Epigastric pain Susannah Thorne MD 09/30/2018 Z68.30 Body mass index (BMI) 30.0-30.9, adult Susannah Thorne MD Plan of Treatment Future Appointment(s):06/29/2019 11:10 am - Schedule, [facility] 11:00 am - [facility]2019 - Susannah Thorne MDI25.10 Atherosclerotic heart disease of [place] coronary artery without angina pectorisNew Medication:Aspirin 81 Low Dose 81 mg - 1 by mouth every day with foodNew Labs:CBC with Auto Diff-[facility], Scheduled: 06/29/19Comments:Ischemic cardiac disease, stable without angina--Patient appears stable without symptoms. Advised to continue meds to control risk factors, statin therapy and BP control. Encouraged continued healthydiet modified in fat and cholesterol with regular daily exercise. Call for symptoms of chest pressure, pain tightness, at rest or with exertion, or increasing SOB/developing exercise intolerance. Call for concerns. recommend she do restart aspirin, chewable , take with food she is no longer takingFollow up:schedule nonfasting labs before visit 06/2019; please obtain last ov note Dr Sigala78.2 Mixed hyperlipidemiaNew Labs:Comprehensive Met Panel-[facility], Scheduled: 06/29/19CPK, Scheduled: 06/29/19Lipid, Scheduled: 06/29/19Comments:high cholreviewed 2018 AHA guidelines, due to known stable ischemic heart diasease, there is high cardiovascular riskPt with ldl reduction over 50% on atorvastatin 10mg so continue this dosing indefinitely restart aspirin, reminded bleeding and gi risks For lifestyle, we also recommend: Low fat ( under 30gm per day), low chol diet ( under 300mg per day chol)focus on lean meat, nonfat 1% dairy, increased veg and fruit, whole grains weight lossexercise build to at least 30min per day. Reviewed signs and symptoms of cardiovascular disease.M25.552 Pain in LEFT hipComments:care with DR Krause obtain records. taking tramadol, cautioned risks for sedation, can prolong QT interval, call for any palpitationscan lower seizure threshold so call for sxs.E66.9 Obesity, unspecifiedComments:continue to work on diet, exercise, weight lossR00.2 PalpitationsComments:pt reports 2 episodes of brief fast heart beat. advised to call if occurs again, if is prolonged seek ER if has significant sxs like dizziness, chest pain, shortness of breath, call 911.H35.3130 Nonexudative age-related macular degeneration, bilateral, stComments:care with Dr Jessica and retina vitreous weswlofphvC44.31 Body mass index (BMI) 31.0-31.9, adultComments:recommend reduced calorie diet and healthy diet and regular exercise to help with weight loss patient continues to work on reduced calorie diet and regular exercise Functional Status Description No Information Available Mental Status Description No Information Available Referrals Description No Information Available
[2019-04-14] MEDS ORDERED: Acetaminophen TAB* 325 MG ONE (12:48)
[2019-04-14] MEDS ORDERED: ceFAZolin 2 GM PREMIX in ORs 2 GM/50 ML BAG ONE (12:48)
[2019-04-14 14:28] LABS: INR 1.14 (0.82-1.09)
[2019-04-14] MEDS ORDERED: Dexamethasone IV* 4 MG/ML 1 ML (4 MG) ONE (15:32)
[2019-04-14] MEDS ORDERED: Propofol* 10 MG/ML 20 ML BTL ONE (15:32)
[2019-04-14] MEDS ORDERED: Ondansetron INJ* 2 MG/ML VIAL ONE (15:32)
[2019-04-14] MEDS ORDERED: Bupivacaine 0.5% SDV PF* 30ML VIAL ONE (15:32)
[2019-04-14] MEDS ORDERED: Ondansetron ODT TAB* 4 MG PO PRN (16:29)
[2019-04-14] MEDS ORDERED: Ondansetron INJ* 2 MG/ML VIAL IV PRN (16:29)
[2019-04-14] MEDS ORDERED: diPHENhydraMINE IV* 50 MG/ML 1 ml VIAL (BENADRYL) IV PRN (16:29)
[2019-04-14] MEDS ORDERED: diPHENhydraMINE PO* 25 MG PO PRN (16:29)
[2019-04-14] MEDS ORDERED: Magnesium Hydroxide LIQ* 30 ML UDC PO PRN (16:29)
[2019-04-14] MEDS ORDERED: oxyCODONE TAB* 5 MG TAB PO PRN (16:29)
[2019-04-14] MEDS ORDERED: Morphine INJ* 2 MG/ML 1 ML SYRINGE (TWO MG - NEW SYRINGE VERSION) IV PRN (16:29)
[2019-04-14] MEDS ORDERED: Cyclobenzaprine TAB* 10 MG PO PRN (16:29)
[2019-04-14] MEDS ORDERED: ROPIVACAINE 5 MG/ML 30 ML BTL (0.5%) ONE (16:51)
--- NOTE | 2019-04-14 17:08 | OP ---
Operative Report - Blank - Operative Report Date of Operation: 04/14/19 Note: KURT NG 1935 Date Of Surgery: 04/14/19 Fozia Krause MD Customs Examiner: Arjun CHAUHAN did help throughout the procedure with preparation of the hip, wound retraction, manipulation of the hip, and wound closure. Anesthesiologist: Dr. Hess Anesthesia Type: Spinal Preoperative Diagnosis: Right severe degenerative osteoarthritis of the hip Postoperative Diagnosis: As above Procedure Performed: Right Total Hip Arthroplasty Complications: None Specimen: Femoral head and acetabular reamings sent to pathology. Hardware used: This is uncemented Fries total hip arthroplasty hardware for the femur a size 3 accolade II with 127 neck angle femoral component, for the acetabulum a size 46C trident II tritanium cluster hole shell with one 15mm screw, for the insert a size 32C trident X3 polyethylene insert, and for the femoral head a size 32 +0 V40 femoral head. Brief history/Indication: KURT NG was known in clinic and had a history of severe right hip pain. She failed conservative treatment with anti- inflammatories, pain pills, intra-articular injections and physical therapy. She elected to undergo right total hip arthroplasty due to continued pain and decreased quality of life. Radiographs showed severe end stage osteoarthritis of the hip with bone on bone contact. Informed consent was obtained from the patient. She understood the risks of surgery included but were not limited to: bleeding, infection, damage to nearby structures, intraoperative fracture, nerve palsy, failure of the hardware, early loosening, stiffness or loss of motion, dislocation, leg length discrepancy, anesthesia complications, stroke, heart attack, blood clot and . She wished to proceed. Intra-Operative findings: Intraoperatively the patient was noted to have severe loss of cartilage of the acetabulum and femoral head. Description of the Procedure: KURT NG was identified in the preanesthesia unit. Her right hip was marked as the correct operative side. Informed consent was signed and placed in the chart. The patient was taken to the operating room and placed under anesthesia without complication. A keenan catheter was placed. The patient was placed on the peg board with all bony prominences well padded. The right lower extremity was prepped and draped in the usual sterile fashion. Preoperative time -out was made to correctly identify the patient, side and site. Appropriate intraoperative antibiotics were given within one hour of incision. A standard posterior incision was made and carried sharply down to the lateral fascia. A new 10 blade was used to make an incision in the fascia in line with the skin incision. A charnley retractor was placed. The piriformis and conjoined tendons were identified and elevated off the posterolateral femur using electrocautery. These were tagged with number 5 Ethibond. Next electrocautery was used to make a posterolateral capsular flap and this was tagged with number 5 Ethibonds. The hip was carefully dislocated. Lesser trochanter to the center of the femoral head was measured at 55 mm. The oscillating saw was used to make the femoral neck cut. The femoral head was carefully removed. The femur was retracted anteriorly and the acetabular retractors were placed. Long-handled knife was used to sharply remove any remaining labrum from the acetabular rim. The acetabulum was sequentially reamed up to a size 46. A bleeding subchondral bone bed was obtained. A trial liner was placed and had excellent fit and stability. A 46C cup with one screw was placed and had excellent stability with appropriate anteversion and abduction angle. A size 32C liner was impacted into the acetabular shell. The liner was checked for stability and was stable. Next attention was turned to preparation of the femoral canal. A canal finder was used to enter the proximal femur. The femoral canal was sequentially broached up to a size 3 femoral broach trial. A trial neck and 32 + 0 trial femoral head was chosen. Lesser trochanter to center of the femoral head measurement was satisfactory. The hip was reduced and taken through a range of motion. The hip was stable in all positions with good soft tissue tension and appropriate leg lengths. The hip was dislocated and all trials were removed. The final implant chosen was a accolade II size 3. This stem was impacted into the femoral canal without difficulty. The stem was stable with appropriate anteversion. The femoral head chosen was a 32 +0 ceramic head. The head was impacted onto the femoral neck without difficulty. The final lesser trochanter to center of the femoral head measurement was satisfactory. The hip was reduced and taken through a range of motion. The hip was stable in all positions with good soft tissue tension and appropriate leg lengths. The hip was copiously irrigated with sterile saline. The previously tagged capsule and tendons were repaired to the posterolateral femur through two trochanteric drill holes. The lateral fascia layer was closed using number 1 vicryls. The rest of the incision was closed in a layered fashion using 0 and 2-0 vicryls. The skin was closed using 3-0 monocryl suture and Dermabond. Sterile adaptic, 4x4s and paper tape was used to cover the incision. The patients anesthesia was reversed without difficulty. She was taken to the PACU in stable condition. Intended weight-bearing will be as tolerated with posterior hip precautions.
[2019-04-14] MEDS ORDERED: Aspirin EC TAB* 81 MG TAB.EC PO SCH (18:00)
[2019-04-14] MEDS: Lactated Ringers 1000 ML Bag* 1,000 ML IV SCH (18:38)
[2019-04-14] MEDS ORDERED: Carvedilol TAB* 3.125 MG PO SCH (21:00)
[2019-04-14] MEDS: Magnesium Hydroxide LIQ* 30 ML UDC PO SCH (21:14)
[2019-04-14] MEDS: oxyCODONE/Acetamin 5/325 MG* TAB PO PRN (21:14)
[2019-04-14] MEDS: Docusate CAP* 100 MG PO SCH (21:14)
[2019-04-14] MEDS: Acetaminophen TAB* 325 MG PO SCH (21:37)
[2019-04-14] MEDS: Multivitamins/Mins (NF) AREDS2 1 CAP CAP PO SCH (21:38)
--- NOTE | 2019-04-14 22:53 | CONS ---
CONSULTATION REPORT: DATE OF CONSULT: 04/14/19 REQUESTING PROVIDER: GISSEL Tran with Orthopedic surgery REASON FOR CONSULT: Medical management of comorbidities. HISTORY OF PRESENT ILLNESS: The patient was admitted today status post total right hip arthroplasty with Dr. Krause. She had approximately 225 mL of estimated blood loss from this procedure per documented output. She was noted to have failed conservative treatment with outpatient management for severe end- stage osteoarthritis of the right hip. Hospital Medicine was asked to consult for medical management of comorbidities. The patient has a past medical history significant for high cholesterol, coronary artery disease, ischemic heart disease. She denies being diagnosed with hypertension although she has been slightly hypertensive since surgery. Currently denies any chest pain, palpitations, shortness of breath, nausea, vomiting, diarrhea, lightheadedness. Currently complaining of pain 2/10 surrounding the incision area. She has no other concerns at this time. PAST MEDICAL HISTORY: High cholesterol, coronary artery disease, ischemic heart disease, macular degeneration, old myocardial infarction per preop clearance report, vitamin D deficiency, allergic rhinitis, and macular degeneration. PAST SURGICAL HISTORY: Bilateral total knee arthroplasties, left total hip arthroplasty, hysterectomy, trigger finger release on both hands, cataract removal. HOME MEDICATIONS: 1. Tramadol 50 mg p.o. t.i.d. p.r.n. 2. PreserVision AREDS 2 softgel 1 cap p.o. b.i.d. 3. Polyethylene glycol (Systane) 0.3% to 0.4% eye drops 1 drop both eyes b.i.d. 4. Cholecalciferol tab 1000 units p.o. q. a.m. 5. Carvedilol 3.125 mg p.o. b.i.d. 6. Atorvastatin 10 mg p.o. q.a.m. 7. Aspirin 81 mg p.o. q.a.m. ALLERGIES: NOVOCAIN. FAMILY HISTORY: Significant family history for multiple types of cancer. Mother with breast and lung cancer, Parkinson's disease. Daughter with breast cancer. Brother with leukemia. Other first-degree relatives with unknown types of cancer. A son with liver cancer. Two sons with COPD. Also a brother with diabetes mellitus. SOCIAL HISTORY: Lives with and daughter in a house which is split in to upstairs apartment and downstairs apartment. The patient and her reside in the downstairs apartment. Denies current or previous tobacco use. Does not drink alcohol. Does not use illicit drugs. REVIEW OF SYSTEMS: Constitutional: Denies fever, chills, night sweats, unexplained weight loss. HEENT: States she follows with Dr. Mabry regarding her vision. Denies any difficulty chewing or swallowing. Cardiovascular: See HPI. Respiratory: Denies any shortness of breath, cough, or wheezing. GI: See HPI. Denies any abdominal pain. : Denied any difficulty urinating prior to admission. Musculoskeletal: Denies any body aches or joint dysfunction other than right hip. Skin: Denies any rashes, lesions, wounds. Neuro: Denies any headaches, weakness, unusual numbness or tingling. PHYSICAL EXAMINATION: Constitutional: The patient is lying comfortably in bed , in no acute distress. Vital Signs: Temp 97.1, heart rate 64, O2 sat 98% on room air, blood pressure 152/76. HEENT: Normocephalic. Neck: Supple. Cardiovascular: Heart rate regular. S1, S2 present. No murmurs, rubs, or gallops. No edema. Pedal pulses are present and equal bilaterally. Respiratory : Lungs clear to auscultation bilaterally throughout. Normal respiratory effort. GI: Bowel sounds x4. Abdomen is soft, nontender. Musculoskeletal: The patient is able to plantar and dorsiflex bilaterally. Skin: Warm, dry, and intact. Neuro: Alert and oriented x3. Able to sense light touch to bilateral feet. DIAGNOSTIC STUDIES AND LABORATORY DATA: Postoperative x-ray of right hip performed, impression states unremarkable immediate postop appearance following right hip replacement. INR 1.14. ASSESSMENT AND PLAN: 1. Status post right total hip arthroplasty. Management per Orthopedics. Bowel regimen, pain control, and DVT prophylaxis per Orthopedics. 2. Coronary artery disease. We will continue carvedilol and atorvastatin. We will continue to monitor vital signs throughout hospital stay. 3. Ischemic heart disease. As mentioned above, we will continue with usual cardiac medications. Preoperative EKG showing sinus rhythm with an old septal infarct, which was noted to be similar to an EKG from July of 2018. 4. FEN. Management per Orthopedics. 5. Code status. Full code. 6. DVT prophylaxis. Management per Orthopedics. We will hold her aspirin per , pt has been started on Eliquis post-operatively. Disposition. The patient's condition is stable. She has been admitted to short -stay surgical unit. Thank you for allowing us to participate in the care of this patient. We will follow during this admission. Case reviewed with Dr. Miramontes; he agrees with the plan at this time. TED [place]ST[place] NP [id number]/[facility] #: [id number] [facility]ERNyla
[2019-04-14] MEDS: ceFAZolin 1 GM ADVAN(*) 1 GM in NS 0.9% 50 ML* 50 ML IVPB SCH (23:51)
[2019-04-14] MEDS: Polyethyl Glycol/Propylene Gly OPHTH.SOLN BOTH EYES SCH (23:57)
[2019-04-15] MEDS: oxyCODONE/Acetamin 5/325 MG* TAB PO PRN ×3 (05:19→18:03)
[2019-04-15] MEDS: Acetaminophen TAB* 325 MG PO SCH ×3 (05:21→22:38)
[2019-04-15] MEDS: Lactated Ringers 1000 ML Bag* 1,000 ML IV SCH (05:54)
[2019-04-15 05:58] LABS: Hematocrit 33 % (35-47); Hemoglobin 11.1 g/dL (12.0-16.0); Mean Platelet Volume 7.8 fL (7.4-10.4); Platelet Count 214 10^3/uL (150-450)
[2019-04-15 06:15] LABS: BUN/Creatinine Ratio 28.1 (8-20); Calcium 8.2 mg/dL (8.6-10.3); EGFR African American 122.3 (>60); Potassium 4.3 mmol/L (3.5-5.0)
[2019-04-15] MEDS: ceFAZolin 1 GM ADVAN(*) 1 GM in NS 0.9% 50 ML* 50 ML IVPB SCH ×2 (07:28→15:05)
[2019-04-15] MEDS: Atorvastatin* 10 MG TAB PO SCH (08:35)
[2019-04-15] MEDS: Vitamin THERAPEUTIC TAB PO SCH (08:35)
[2019-04-15] MEDS: Apixaban* 2.5 MG TAB PO SCH ×2 (08:35→21:04)
[2019-04-15] MEDS: Docusate CAP* 100 MG PO SCH ×2 (08:35→21:04)
[2019-04-15] MEDS: Carvedilol TAB* 3.125 MG PO SCH ×2 (08:35→21:05)
[2019-04-15] MEDS: Cholecalciferol TAB* 1000 UNITS PO SCH (08:35)
[2019-04-15] MEDS: Polyethyl Glycol/Propylene Gly OPHTH.SOLN BOTH EYES SCH ×2 (08:36→21:11)
[2019-04-15] MEDS: Magnesium Hydroxide LIQ* 30 ML UDC PO SCH ×2 (08:36→21:04)
[2019-04-15] MEDS: Multivitamins/Mins (NF) AREDS2 1 CAP CAP PO SCH ×2 (08:40→21:11)
--- NOTE | 2019-04-15 09:32 | PN ---
Subjective Date of Service: 04/15/19 Interval History: Pt doing well this morning, up in chair. C/o pain 2/10 to R hip. States pain is well controlled with medications. Denies dizziness, fever, chills, chest pain/ tightness/pressure, palpitations, cough, wheezing, N/V/D, abdominal pain, numbness or tingling. Objective Active Medications: Acetaminophen (Tylenol Tab*) 975 mg PO Q8HR [facility] Last Admin: 04/15/19 05:21 Dose: Not Given Apixaban (Eliquis*) 2.5 mg PO BID [facility] Last Admin: 04/15/19 08:35 Dose: 2.5 mg Atorvastatin Calcium (Lipitor*) [address] [facility] Last Admin: 04/15/19 08:35 Dose: 10 mg Bisacodyl (Dulcolax Supp*) 10 mg AR DAILY PRN PRN Reason: CONSTIPATION Carvedilol (Coreg Tab*) 3.125 mg PO BID [facility] Last Admin: 04/15/19 08:35 Dose: 3.125 mg Cholecalciferol (Vitamin D Tab*) 1,[address] [facility] Last Admin: 04/15/19 08:35 Dose: 1,000 units Cyclobenzaprine HCl (Flexeril Tab*) 10 mg PO Q6H PRN PRN Reason: SPASMS Diphenhydramine HCl (Benadryl Iv*) 25 mg IV Q6H PRN PRN Reason: PRURITIS Diphenhydramine HCl (Benadryl Po*) 25 mg PO Q6H PRN PRN Reason: PRURITIS Docusate Sodium (Colace Cap*) 100 mg PO BID [facility] Last Admin: 04/15/19 08:35 Dose: 100 mg Cefazolin Sodium 1 gm/ Sodium (Chloride) 50 mls @ 200 mls/hr IVPB Q8H [facility] Stop: 04/15/19 15:44 Last Admin: 04/15/19 07:28 Dose: 200 mls/hr Lactated Ringer's (Lactated Ringers 1000 Ml Bag*) 1,000 mls @ 100 mls/hr IV PER RATE [facility] Last Admin: 04/15/19 05:54 Dose: 100 mls/hr Lactulose (Lactulose*) 30 ml PO BID PRN PRN Reason: CONSTIPATION Magnesium Hydroxide (Milk Of Morelia Ruizq*) 30 ml PO BID [facility] Last Admin: 04/15/19 08:36 Dose: 30 ml Magnesium Hydroxide (Milk Of Magnesia Liq*) 30 ml PO Q6H PRN PRN Reason: CONSTIPATION Morphine Sulfate (Morphine Inj (Syringe))*) 2 mg IV Q4H PRN PRN Reason: Pain - Unrelieved Multivitamins (Theragran Tab*) 1 tab PO DAILY [facility] Last Admin: 04/15/19 08:35 Dose: 1 tab Multivitamins/Minerals (Preservision Areds 2) 1 cap PO BID [facility] Last Admin: 04/15/19 08:40 Dose: Not Given Ondansetron HCl (Zofran Inj*) 4 mg IV Q6H PRN PRN Reason: NAUSEA Ondansetron HCl (Zofran Odt Tab*) 4 mg PO Q6H PRN PRN Reason: NAUSEA Oxycodone HCl (Roxycodone Tab*) 10 mg PO Q4H PRN PRN Reason: Pain - Breakthrough Oxycodone/Acetaminophen (Percocet 5/325 Tab*) 1 tab PO Q4H PRN PRN Reason: PAIN - MODERATE Last Admin: 04/15/19 09:20 Dose: 1 tab Oxycodone/Acetaminophen (Percocet 5/325 Tab*) 2 tab PO Q4H PRN PRN Reason: PAIN - SEVERE Last Admin: 04/15/19 05:19 Dose: 2 tab Polyethyl Glycol/Propylene Glycol (Lubricant Eye Drops) 1 drop BOTH EYES BID [facility] Last Admin: 04/15/19 08:36 Dose: 1 drop Vital Signs - 8 hr 04/15/19 04/15/19 04/15/19 02:18 03:44 05:19 Temperature 97.8 F Pulse Rate 82 Respiratory 17 16 18 Rate Blood Pressure 146/74 (mmHg) O2 Sat by Pulse 95 Oximetry 04/15/19 04/15/19 04/15/19 07:21 07:30 08:00 Temperature 98.1 F Pulse Rate 74 Respiratory 16 17 17 Rate Blood Pressure 114/51 (mmHg) O2 Sat by Pulse 96 96 Oximetry 04/15/19 09:20 Temperature Pulse Rate Respiratory 18 Rate Blood Pressure (mmHg) O2 Sat by Pulse Oximetry Oxygen Devices in Use Now: None Appearance: Sitting up in chair, in NAD. Respiratory: Symmetrical Chest Expansion and Respiratory Effort, Clear to Auscultation Cardiovascular: RRR, - - Trace non-pitting edema throughout RLE Abdominal: NL Sounds; No Tenderness; No Distention Lymphatic: No Cervical Adenopathy Skin: - - Incision to R hip. Neurological: Alert and Oriented x 3, NL Sensation Nutrition: Taking PO's Result Diagrams: 04/15/19 05:12 04/15/19 05:12 Additional Lab and Data: Laboratory Tests 04/15/19 05:12 Calcium 8.2 L Assess/Plan/Problems-Billing Assessment: is an 83 yo female with PMHx significant for CAD and ischemic heart disease admitted to short stay surgical unit after an elective R total hip arthroplasty with on 04/14. Hospital medicine was asked to consult for management of medical comorbidities as well as post-operative HTN. - Patient Problems (1) Status post total hip replacement, right Current Visit: Yes Status: Acute Code(s): Z96.641 - PRESENCE OF RIGHT ARTIFICIAL HIP JOINT SNOMED Code(s): 148453642675 Comment: Management per orthopedics. Pain management, bowel regimen, and DVT prophylaxis per ortho. (2) Coronary artery disease Current Visit: Yes Status: Acute Code(s): I25.10 - ATHSCL HEART DISEASE OF [place] CORONARY ARTERY W/O ANG PCTRS SNOMED Code(s): 68075184 Comment: Chronic condition, will continue usual medications. (3) Ischemic heart disease Current Visit: Yes Status: Acute Code(s): I25.9 - CHRONIC ISCHEMIC HEART DISEASE, UNSPECIFIED SNOMED Code(s): 209280864 Comment: No cardiac related symptoms, no abdnormal findings from physical exam. Condition stable. Will continue usual medications other than ASA (per orthopedics), and will continue to monitor her for any changes in status. (4) Acute blood loss anemia Current Visit: Yes Status: Acute Code(s): D62 - ACUTE POSTHEMORRHAGIC ANEMIA SNOMED Code(s): 368660420 Comment: Hgb 11.1 Hct 33. Likely due to surgical procedure done yesterday. Management per orthopedics. (5) DVT prophylaxis Current Visit: Yes Status: Acute Code(s): Z29.9 - ENCOUNTER FOR PROPHYLACTIC MEASURES, UNSPECIFIED SNOMED Code(s): 021776013 Comment: Per orthopedics. Has been started on eliquis. (6) Full code status Current Visit: Yes Status: Acute Code(s): Z78.9 - OTHER SPECIFIED HEALTH STATUS SNOMED Code(s): 799142004 Attending: Lucie Vieira
--- NOTE | 2019-04-15 10:38 | PN ---
Progress Note - Progress Note Date of Service: 04/15/19 SOAP: Subjective: []Pt seen at bedside. She feels well without CP, SOB, dizziness, nausea. Hip pain is well controlled. Objective: []Gen: NAD, appears well RLE: Right hip dressing CDI, thigh soft, DF/PF intact, DP2+, sensation intact to light touch distally Calves supple and nontender without erythema, edema or palpable cords Assessment: []POD [address] Krause Plan: []WBAT PT/OT Posterior hip precautions eliquis 2.5 mg po BID Plan for rehab at [place], made aware to begin placement Vital Signs Temp 98.1 F 04/15/19 07:30 Pulse 74 04/15/19 07:30 Resp 18 04/15/19 09:20 BP 114/51 04/15/19 07:30 Pulse Ox 96 04/15/19 08:00 Intake & Output 04/14/19 04/15/19 04/15/19 18:59 06:59 18:59 Intake Total 1100 2158 480 Output Total 425 1605 Balance 675 553 480 Weight 162 lb 3.2 oz Intake: IV Fluids 1100 858 ABX - CEFAZOLIN 54 LR 1100 804 Oral 1300 480 Output: Prajapati 200 1605 Estimated Blood Loss 225 Laboratory Last Values Hgb 11.1 g/dL (12.0-16.0) L 04/15/19 05:12 Hct 33 % (35-47) L 04/15/19 05:12 Plt Count 214 10^3/uL (150-450) 04/15/19 05:12 MPV 7.8 fL (7.4-10.4) 04/15/19 05:12 INR (Anticoag Therapy) 1.14 (0.82-1.09) H 04/14/19 14:03 Sodium 137 mmol/L (135-145) 04/15/19 05:12 Potassium 4.3 mmol/L (3.5-5.0) 04/15/19 05:12 Chloride 103 mmol/L (101-111) 04/15/19 05:12 Carbon Dioxide 27 mmol/L (22-32) 04/15/19 05:12 Anion Gap 7 mmol/L (2-11) 04/15/19 05:12 BUN 16 mg/dL (6-24) 04/15/19 05:12 Creatinine 0.57 mg/dL (0.51-0.95) 04/15/19 05:12 Est GFR ( Amer) 122.3 (>60) 04/15/19 05:12 Est GFR (Non-Af Amer) 101.0 (>60) 04/15/19 05:12 BUN/Creatinine Ratio 28.1 (8-20) H 04/15/19 05:12 Glucose 128 mg/dL (70-100) H 04/15/19 05:12 Calcium 8.2 mg/dL (8.6-10.3) L 04/15/19 05:12
[2019-04-16] MEDS: oxyCODONE/Acetamin 5/325 MG* TAB PO PRN ×2 (04:20→08:18)
[2019-04-16 05:46] LABS: Hematocrit 27 % (35-47); Hemoglobin 9.2 g/dL (12.0-16.0); Mean Platelet Volume 7.9 fL (7.4-10.4); Platelet Count 175 10^3/uL (150-450)
[2019-04-16] MEDS: Acetaminophen TAB* 325 MG PO SCH ×3 (06:35→22:07)
[2019-04-16] MEDS: Polyethyl Glycol/Propylene Gly OPHTH.SOLN BOTH EYES SCH ×2 (08:03→20:46)
[2019-04-16] MEDS: Magnesium Hydroxide LIQ* 30 ML UDC PO SCH ×2 (08:04→20:43)
[2019-04-16] MEDS: Multivitamins/Mins (NF) AREDS2 1 CAP CAP PO SCH ×2 (08:05→20:52)
[2019-04-16] MEDS: Vitamin THERAPEUTIC TAB PO SCH (08:05)
[2019-04-16] MEDS: Carvedilol TAB* 3.125 MG PO SCH ×2 (08:05→20:46)
[2019-04-16] MEDS: Apixaban* 2.5 MG TAB PO SCH ×2 (08:05→20:46)
[2019-04-16] MEDS: Atorvastatin* 10 MG TAB PO SCH (08:05)
[2019-04-16] MEDS: Cholecalciferol TAB* 1000 UNITS PO SCH (08:05)
[2019-04-16] MEDS: Docusate CAP* 100 MG PO SCH ×2 (08:05→20:46)
[2019-04-16] MEDS ORDERED: oxyCODONE/Acetamin 5/325 MG* TAB PO PRN (11:04)
--- NOTE | 2019-04-16 11:04 | PN ---
Progress Note - Progress Note Date of Service: 04/16/19 SOAP: Subjective: []Pt seen at bedside, she feels well without complaints. Denies CP, SOB, dizziness, nausea. Nursing alerts me of redness of her distal toes which patient states to be chronic usually worsening with dependent position of feet. Objective: []Gen: NAD, appears well RLE: Right hip dressing changed, incision CDI, thigh soft, DF/PF intact, DP2+, sensation intact to light touch distally Calves supple and nontender without erythema, edema or palpable cords R toes 2-4 with red discoloration just proximal to nails. No warmth or tenderness. Assessment: []POD [address] Krause Plan: []WBAT PT/OT Posterior hip precautions eliquis 2.5 mg po BID Plan for rehab at [place], [facility] unable to offer a bed. Has a bed offer at [facility] Will follow toe discoloration but chronic per pt should fu w PCP outpt Vital Signs Temp 99.5 F 04/16/19 07:25 Pulse 78 04/16/19 07:25 Resp 18 04/16/19 10:46 BP 106/55 04/16/19 07:25 Pulse Ox 93 04/16/19 07:55 Intake & Output 04/15/19 04/16/19 04/16/19 18:59 06:59 18:59 Intake Total 1529 600 360 Output Total 450 200 300 Balance 1079 400 60 Intake: IV Fluids 849 ABX - CEFAZOLIN 55 LR 794 Oral 680 600 360 Output: Urine 450 200 300 Other: Estimated Void Large # Voids 1 Laboratory Last Values Hgb 9.2 g/dL (12.0-16.0) L 04/16/19 05:29 Hct 27 % (35-47) L 04/16/19 05:29 Plt Count 175 10^3/uL (150-450) 04/16/19 05:29 MPV 7.9 fL (7.4-10.4) 04/16/19 05:29 INR (Anticoag Therapy) 1.14 (0.82-1.09) H 04/14/19 14:03 Sodium 137 mmol/L (135-145) 04/15/19 05:12 Potassium 4.3 mmol/L (3.5-5.0) 04/15/19 05:12 Chloride 103 mmol/L (101-111) 04/15/19 05:12 Carbon Dioxide 27 mmol/L (22-32) 04/15/19 05:12 Anion Gap 7 mmol/L (2-11) 04/15/19 05:12 BUN 16 mg/dL (6-24) 04/15/19 05:12 Creatinine 0.57 mg/dL (0.51-0.95) 04/15/19 05:12 Est GFR ( Amer) 122.3 (>60) 04/15/19 05:12 Est GFR (Non-Af Amer) 101.0 (>60) 04/15/19 05:12 BUN/Creatinine Ratio 28.1 (8-20) H 04/15/19 05:12 Glucose 128 mg/dL (70-100) H 04/15/19 05:12 Calcium 8.2 mg/dL (8.6-10.3) L 04/15/19 05:12
[2019-04-16] MEDS: traMADol TAB* 50 MG PO PRN ×2 (12:08→20:50)
[2019-04-17] MEDS: Acetaminophen TAB* 325 MG PO SCH ×2 (05:13→13:17)
[2019-04-17 06:09] LABS: Hematocrit 28 % (35-47); Hemoglobin 9.5 g/dL (12.0-16.0); Platelet Count 195 10^3/uL (150-450)
[2019-04-17] MEDS: Apixaban* 2.5 MG TAB PO SCH (08:32)
[2019-04-17] MEDS: Magnesium Hydroxide LIQ* 30 ML UDC PO SCH (08:33)
[2019-04-17] MEDS: Atorvastatin* 10 MG TAB PO SCH (08:33)
[2019-04-17] MEDS: Cholecalciferol TAB* 1000 UNITS PO SCH (08:33)
[2019-04-17] MEDS: Docusate CAP* 100 MG PO SCH (08:33)
[2019-04-17] MEDS: Carvedilol TAB* 3.125 MG PO SCH (08:33)
[2019-04-17] MEDS: Vitamin THERAPEUTIC TAB PO SCH (08:33)
[2019-04-17] MEDS: Multivitamins/Mins (NF) AREDS2 1 CAP CAP PO SCH (08:34)
[2019-04-17] MEDS: Polyethyl Glycol/Propylene Gly OPHTH.SOLN BOTH EYES SCH (08:34)
--- NOTE | 2019-04-17 10:46 | PN ---
Progress Note - Progress Note Date of Service: 04/17/19 SOAP: Subjective: [Pt seen at bedside, she feels well without complaints. Denies CP, SOB, dizziness, nausea. Objective: []Gen: NAD, appears well RLE: Right hip dressing CDI, thigh soft, DF/PF intact, DP2+, sensation intact to light touch distally Calves supple and nontender without erythema, edema or palpable cords Vital Signs Temp 98.2 F 04/17/19 07:34 Pulse 71 04/17/19 07:34 Resp 20 04/17/19 08:36 BP 120/53 04/17/19 07:34 Pulse Ox 94 04/17/19 08:00 Intake & Output 04/16/19 04/17/19 04/17/19 18:59 06:59 18:59 Intake Total 440 300 240 Output Total 400 150 300 Balance 40 150 -60 Intake: Oral 440 300 240 Output: Urine 400 150 300 Other: Estimated Void Small Date of Last Bowel 04/16/19 Movement # Bowel Movements 0 Estimated Stool Amount Large # Voids 1 Assessment: []POD [address] Krause Plan: []WBAT PT/OT Posterior hip precautions eliquis 2.5 mg po BID Plan for rehab at [place], [facility] unable to offer a bed. Has a bed offer at [facility]
--- NOTE | 2019-04-17 10:50 | DS ---
Orthopedic Discharge Summary - Discharge Summary Date of Admission:04/14/19 Date of Discharge: 04/17/2019 Date of Surgery: 04/14/2019 Attending Orthopedic Provider: Dr. Krause Pre-operative Diagnosis: Right hip osteoarthritis Operative Procedure: Right total hip arthroplasty Disposition of Patient: Critical Access Hospital Condition of Patient: Good History: KURT NG is a 83 year old F with years of increasingly severe right hip pain. Patient has failed conservative management and has elected to undergo a right total hip replacement Hospital Course: KURT was admitted to [facility] on 04/14/19. Patient underwent a right total hip replacement without complication followed by a brief recovery in PACU and transfer to the Short Stay Surgical Unit in stable condition. Our hospitalist service, physical therapy and occupational therapy also participated in this patients care. Post-op day 1: patient was alert and in no acute distress. Dressing was clean, dry and intact. Operative extremity dorsiflexion and plantarflexion intact, sensation intact to light touch distally, DP2+. Post-op day two: dressing was changed, incision was clean , dry and intact. POD 3 insurance approved stay in halfway facility. Patient was deemed to be medically and orthopedically stable for discharge. Physical therapy goals were met. Home Medications Medication Instructions Recorded Confirmed Type Vit C/E/Zn/Coppr/Lutein/Zeaxan 1 each PO BID #0 08/16/15 04/14/19 History [Preservision Areds 2 Softgel] Atorvastatin* [Lipitor 10 MG*] 10 mg PO QAM 07/01/17 04/14/19 History Carvedilol TAB* [Coreg TAB*] 3.125 mg PO BID 07/01/17 04/14/19 History Cholecalciferol TAB* [Vitamin D 1,000 unit PO QAM 04/06/19 04/14/19 History TAB*] Propylene Glycol/Peg 400/Pf 1 drop BOTH EYES BID 04/06/19 04/14/19 History [Systane 0.3-0.4% Eye Drop] Tramadol HCl 50 mg PO TID PRN 04/06/19 04/14/19 History Apixaban* [Eliquis*] 2.5 mg PO BID tab 04/17/19 Rx oxyCODONE/Acetamin 5/325 MG* 1 tab PO Q4H PRN tab 04/17/19 Rx [Percocet 5/325 TAB*] Discharge Instructions following Orthopedic Surgery: Activity: * Weight Bearing as tolerated * Continue physical therapy and occupational therapy exercises as shown Hip replacements: Continue Hip Precautions- do not cross legs or bend greater than 90 degrees/squat Wound care: * OK to shower on post-op day 3, no bathing, swimming, or submerging wound. * Use gentle soap, pat dry. Cover with gauze, BARBARA wrap or tape. * Visiting home nurse to do wound checks. Call Orthopedic office for: * Increased drainage * Redness * Increased pain * Fever Go to ER with shortness of breath or chest pain. Diet: * Regular diet * Increase fluids and fiber to prevent constipation. * Continue to use stool softeners, call office if no bowel motion within 48 hours. Medications See Home Medication List in your packet for medications that you should take after discharge. DVT Prophylaxis: Eliquis Dosin.5 mg, 1 tab every 12 hours x 30 days Pain Control: Percocet Dosin/325 mg 1-2 tabs by mouth every 4-6 hours as needed for pain. Maximum of 10 tabs per day. Please note that Percocet contains Tylenol (acetaminophen). Maximum daily dose of Tylenol is 4000 mg from all sources. Antibiotics are required prior to any dental work. FOLLOW UP: Follow up with [Jimi] Within 10-14 days, call for appointment Please call our office with any questions or concerns ([phone]
[2019-04-17 11:36] VITALS: BP 138/69
[2019-04-17] MEDS: traMADol TAB* 50 MG PO PRN (13:08)
== END 2019-04-17 13:25 | DRG 470 ==
LOC: AA 12:18 → SSU 16:29
PROVIDERS: ADMIT Orthopaedic Surgery Adult Reconstructive Orthopaedic Surgery; ATTEND Orthopaedic Surgery Adult Reconstructive Orthopaedic Surgery
PROC: 0SR904A Replacement of Right Hip Joint with Ceramic on Polyethylene Synthetic Substitute, Uncemented, Open Approach (ICD-10-PCS; principal; 2019-04-14 15:30)
DX: M16.11 Unilateral primary osteoarthritis, right hip (principal); D62 Acute posthemorrhagic anemia; E78.00 Pure hypercholesterolemia, unspecified; I25.10 Atherosclerotic heart disease of native coronary artery without angina pectoris; Z96.653 Presence of artificial knee joint, bilateral; Z96.642 Presence of left artificial hip joint; I25.9 Chronic ischemic heart disease, unspecified; E78.2 Mixed hyperlipidemia; J30.9 Allergic rhinitis, unspecified; E66.9 Obesity, unspecified; H35.3130 Nonexudative age-related macular degeneration, bilateral, stage unspecified; I97.3 Postprocedural hypertension; Z88.4 Allergy status to anesthetic agent; I25.2 Old myocardial infarction; Z68.30 Body mass index [BMI] 30.0-30.9, adult
CPT/HCPCS: 36415; 72170; 80048; 85014; 85018; 85049; 85610; 88304; 88311; A9270-GY; C1713; C1776; J0690; J1100; J2405; J2704; J2795; J3490